=== PATIENT | female | born 1940 | race Caucasian/White ===

== ENCOUNTER 2018-12-23 11:41 | Emergency (ER) | payer MEDICARE, BC ==
[2018-12-23] MEDS ORDERED: cloNIDine 0.1 MG Tab PO ONE (12:59)
--- NOTE | 2018-12-23 13:05 | EDM.PDOC ---
ED HPI GENERAL MEDICAL PROBLEM - General Chief Complaint: Cardiovascular Problem Stated Complaint: HIGH BP- SENT FROM THE CLINIC Time Seen by Provider: 12/23/18 12:36 Source of Information: Reports: Patient, Provider, RN Notes Reviewed History Limitations: Reports: No Limitations - History of Present Illness INITIAL COMMENTS - FREE TEXT/NARRATIVE: 78-year-old female presents emergency department today sent over from clinic for elevated blood pressure. She has a long extensive history with poorly controlled blood pressure MRI reveals chronic lacunar infarcts. She has an extensive intolerance lists to blood pressure medications including beta blockers, hakeem inhibitors, arm class medications, calcium channel blockers. She is very resistant to trying any new medications because they make her feel lightheaded and passed out. - Related Data Allergies Allergy/AdvReac Type Severity Reaction Status Date / Time latex Allergy Mild Itching Verified 12/23/18 12:16 bacitracin Allergy Cannot Verified 12/23/18 12:16 [From Neosporin Remember ([id number])] bacitracin zinc Allergy Cannot Verified 12/23/18 12:16 [From Neosporin Remember ([id number])] losartan potassium Allergy Cannot Verified 12/23/18 12:16 [From Cozaar] Remember neomycin sulfate Allergy Cannot Verified 12/23/18 12:16 [From Neosporin Remember ([id number])] nickel [Nickel] Allergy unknown Verified 12/23/18 12:16 polymyxin B Allergy Cannot Verified 12/23/18 12:16 [From Neosporin Remember ([id number])] quinapril Allergy Unknown Verified 12/23/18 12:16 amlodipine AdvReac Fainting Verified 12/23/18 12:16 labetalol [Labetalol] AdvReac Fainting Verified 12/23/18 12:16 lisinopril AdvReac Fainting Verified 12/23/18 12:16 meperidine HCl [From Demerol] AdvReac Dizziness Verified 12/23/18 12:16 NSAIDS (Non-Steroidal AdvReac Cannot Verified 12/23/18 12:16 Anti-Inflamma Remember Home Meds: Home Meds Cholecalciferol (Vitamin D3) [Vitamin D] 2 cap PO DAILY 03/31/13 [History] Clopidogrel [Plavix] 75 mg PO DAILY 03/31/13 [History] Cyanocobalamin (Vitamin B-12) [Vitamin B-12] 250 mcg PO DAILY 03/31/13 [History] Fenofibrate,Micronized [Lofibra] 1 cap PO DAILY 03/31/13 [History] Folic Acid 400 mcg PO DAILY 03/31/13 [History] Meclizine [Antivert] 25 mg PO TID PRN 03/31/13 [History] Propranolol HCl 1 tab PO BID 03/31/13 [History] Ranitidine [Zantac] 150 mg PO DAILY 03/31/13 [History] Spironolactone [Aldactone] 25 mg PO BID 03/31/13 [History] Triamcinolone Acetonide [Triamcinolone Acetonide 0.1% Crm] 1 applic TOP QID 12/04 [History] Clobetasol [Clobetasol Propionate 0.05%] 45 gm TOP BID 10/28/13 [History] Triamcinolone Acetonide [Kenalog 0.1% Crm] 15 gm .XX QID 10/28/13 [History] cloNIDine [Catapres] 0.1 mg PO DAILY #30 tab 12/23/18 [Rx] Past Medical History HEENT History: Reports: Cataract, Hard of Hearing, Impaired Vision Cardiovascular History: Reports: High Cholesterol, Hypertension Genitourinary History: Reports: Urinary Incontinence [employer] History: Reports: Neurological History: Reports: CVA, Migraines - Past Surgical History Head Surgeries/Procedures: Reports: None HEENT Surgical History: Reports: None Cardiovascular Surgical History: Reports: AAA Repair, Other (See Below) GI Surgical History: Reports: Appendectomy, Cholecystectomy Female Surgical History: Reports: None Neurological Surgical History: Reports: None Dermatological Surgical History: Reports: None Social & Family History - Tobacco Use Smoking Status *Q: Former Smoker Used Tobacco, but Quit: Yes Month/Year Tobacco Last Used: 1989 - Caffeine Use Caffeine Use: Reports: Coffee, Soda, Tea - Recreational Drug Use Recreational Drug Use: No - Living Situation & Occupation Living situation: Reports: Occupation: Retired ED ROS GENERAL - Review of Systems Review Of Systems: See Below Constitutional: Reports: No Symptoms HEENT: Reports: No Symptoms Respiratory: Reports: No Symptoms Cardiovascular: Reports: No Symptoms GI/Abdominal: Reports: No Symptoms Neurological: Reports: Other (head feels full) ED EXAM, GENERAL - Physical Exam Exam: See Below Exam Limited By: No Limitations General Appearance: Alert, WD/WN, No Apparent Distress Respiratory/Chest: No Respiratory Distress, Lungs Clear, Normal Breath Sounds, No Accessory Muscle Use, Chest Non-Tender Cardiovascular: Regular Rate, Rhythm, No Murmur Course - Vital Signs Last Recorded V/S: Last Vital Signs Temp 96.8 F 12/23/18 12:28 Pulse 76 12/23/18 15:01 Resp 16 12/23/18 15:01 BP 188/100 H 12/23/18 15:01 Pulse Ox 97 12/23/18 15:01 - Orders/Labs/Meds Meds: Medications Discontinued Medications Generic Name Dose Route Start Last Admin Trade Name Freq PRN Reason Stop Dose Admin Clonidine HCl 0.1 mg 12/23/18 12:59 12/23/18 13:20 Catapres PO 12/23/18 13:00 0.1 mg ONETIME ONE Administration Nitroglycerin 0.4 mg 12/23/18 13:59 12/23/18 14:32 Nitrostat SL 12/23/18 14:00 0.4 mg ONETIME ONE Administration Departure - Departure Time of Disposition: 15:14 Disposition: Home, Self-Care 01 Condition: Fair Clinical Impression: Hypertension Qualifiers: Hypertension type: essential hypertension Qualified Code(s): I10 - Essential ( primary) hypertension Prescriptions: cloNIDine [Catapres] 0.1 mg PO DAILY #30 tab Referrals: Lydia Larsen PA [Primary Care Provider] - Forms: ED Department Discharge Additional Instructions: start your Catapres tomorrow one tablet daily, please follow-up with your [facility] provider in 2 days for reevaluation at which time she may want to check your blood work, call return to the emergency department worsening of symptoms - Assessment/Plan Plan: Assessment Acuity = acute Site and laterality = hypertension poorly controlled Etiology = unclear etiology Manifestations = none Location of injury = Home Lab values = none Plan we will bring her blood pressure down from 240-188 with combination Catapres 0.1 mg in sublingual nitroglycerin. Because of her extensive intolerance to blood pressure medications used Catapres 0.1 mg daily those medications have been faxed a [facility]. She'll follow up with her primary care in 2 days for reevaluation of blod pressure and blood work as needed This note was dictated using dragon voice recognition software please call with any questions on syntax or grammar.
[2018-12-23] MEDS ORDERED: Nitroglycerin 0.4 MG Tab.SL SL ONE (13:59)
[2018-12-23 15:02] VITALS: BP 188/100; PULSE 76
== END 2018-12-23 15:35 | disposition home or self-care (01) ==
LOC: JP.ED 11:41
DX: I10 Essential (primary) hypertension (principal); Z86.73 Personal history of transient ischemic attack (TIA), and cerebral infarction without residual deficits; Z87.891 Personal history of nicotine dependence; Z88.1 Allergy status to other antibiotic agents; Z91.040 Latex allergy status; Z88.8 Allergy status to other drugs, medicaments and biological substances; Z88.6 Allergy status to analgesic agent; Z91.048 Other nonmedicinal substance allergy status; Z79.02 Long term (current) use of antithrombotics/antiplatelets; Z79.899 Other long term (current) drug therapy
CPT/HCPCS: 99282; A9270-GY

== ENCOUNTER 2019-03-12 17:35 | Observation (INO) | payer MEDICARE, BC ==
--- NOTE | 2019-03-12 18:20 | EDM.PDOC ---
ED HPI GENERAL MEDICAL PROBLEM - General Chief Complaint: Skin Complaint Stated Complaint: REACTION ON BOTH EYES Time Seen by Provider: 03/12/19 18:10 Source of Information: Reports: Patient History Limitations: Reports: No Limitations - History of Present Illness INITIAL COMMENTS - FREE TEXT/NARRATIVE: pt has had markedly swollen eyes for the past 36 hours. She was using cool packs. She does not know what has caused this. She can not think of what this could be. She did not eat anything different. She was at [employer] and it was after that that it happened. Onset: Other ( 36 hours ago. ) Duration: Hour(s): Location: Reports: Face Associated Symptoms: Reports: No Other Symptoms, Other ( Pt has no swelling in the throat nd she is not sob. ) Face/Facial Pain Score (Numeric/FACES): 9 - Related Data Allergies Allergy/AdvReac Type Severity Reaction Status Date / Time latex Allergy Mild Itching Verified 03/12/19 17:57 bacitracin Allergy Cannot Verified 03/12/19 17:57 [From Neosporin Remember ([id number])] bacitracin zinc Allergy Cannot Verified 03/12/19 17:57 [From Neosporin Remember ([id number]-[id number])] losartan potassium Allergy Cannot Verified 03/12/19 17:57 [From Cozaar] Remember neomycin sulfate Allergy Cannot Verified 03/12/19 17:57 [From Neosporin Remember ([id number])] nickel [Nickel] Allergy unknown Verified 03/12/19 17:57 polymyxin B Allergy Cannot Verified 03/12/19 17:57 [From Neosporin Remember ([id number])] quinapril Allergy Unknown Verified 03/12/19 17:57 amlodipine AdvReac Fainting Verified 03/12/19 17:57 labetalol [Labetalol] AdvReac Fainting Verified 03/12/19 17:57 lisinopril AdvReac Fainting Verified 03/12/19 17:57 meperidine HCl [From Demerol] AdvReac Dizziness Verified 03/12/19 17:57 NSAIDS (Non-Steroidal AdvReac Cannot Verified 03/12/19 17:57 Anti-Inflamma Remember Home Meds: Home Meds Cholecalciferol (Vitamin D3) [Vitamin D] 1 cap PO DAILY 03/31/13 [History] Folic Acid 400 mcg PO DAILY 03/31/13 [History] Meclizine [Antivert] 25 mg PO TID PRN 03/31/13 [History] Propranolol HCl 1 tab PO BID 03/31/13 [History] cloNIDine [Catapres] 0.1 mg PO DAILY #30 tab 12/23/18 [Rx] Calcitriol [Rocaltrol] 0.25 mcg PO ASDIRECTED 03/12/19 [History] Clopidogrel Bisulfate [Clopidogrel] 1 tab PO DAILY 03/12/19 [History] Losartan [Cozaar] 50 mg PO DAILY 03/12/19 [History] Potassium Chloride 20 meq PO BID 03/12/19 [History] atorvaSTATin [Lipitor] 20 mg PO DAILY 03/12/19 [History] Past Medical History HEENT History: Reports: Cataract, Hard of Hearing, Impaired Vision Cardiovascular History: Reports: High Cholesterol, Hypertension Gastrointestinal History: Reports: None Genitourinary History: Reports: Urinary Incontinence [employer] History: Reports: Neurological History: Reports: CVA, Migraines - Past Surgical History Head Surgeries/Procedures: Reports: None HEENT Surgical History: Reports: None Female Surgical History: Reports: None Neurological Surgical History: Reports: None Dermatological Surgical History: Reports: None Social & Family History - Caffeine Use Caffeine Use: Reports: Coffee, Soda, Tea - Living Situation & Occupation Living situation: Reports: Occupation: Retired ED ROS GENERAL - Review of Systems Review Of Systems: See Below Constitutional: Reports: No Symptoms HEENT: Reports: Eye Discharge, Other (pt has marked swelling of both eye lids. ) Respiratory: Reports: No Symptoms Cardiovascular: Reports: No Symptoms Endocrine: Reports: No Symptoms GI/Abdominal: Reports: No Symptoms : Reports: No Symptoms Musculoskeletal: Reports: No Symptoms ED EXAM, SKIN/RASH Exam: See Below Text/Narrative:: p arrived with marked swelling around both eyes. These were very itch. She has no idea why she has reacted. She has a rash on her rt ankle which looks like a eczema type rash. Exam Limited By: No Limitations General Appearance: Alert, Anxious, Moderate Distress, Other (pt has a markedly elevated bp. She did not take her meds today. ) Ears: Normal TMs Nose: Normal Inspection Throat/Mouth: Normal Inspection Head: Atraumatic Neck: Normal Inspection Respiratory/Chest: No Respiratory Distress Cardiovascular: Regular Rate, Rhythm GI/Abdominal: Soft, Non-Tender (Female) Exam: Deferred Rectal (Female) Exam: Deferred Back Exam: Normal Inspection Extremities: Other (pt has a rash on the inner aspect of the rt ankle. ) Neurological: Alert, Oriented, Normal Cognition Psychiatric: Normal Affect, Anxious Skin: Other (pt has swelling around both eyes and she has a rash on the inner aspect of the rt ankle. ) Location, Skin: Face, Lower Extremity, Right Characteristics: Papular Course - Vital Signs Last Recorded V/S: Last Vital Signs Temp 36.4 C 03/12/19 18:18 Pulse 92 03/12/19 20:52 Resp 16 03/12/19 19:25 BP 191/92 H 03/12/19 22:03 Pulse Ox 98 03/12/19 20:26 - Orders/Labs/Meds Orders: Active Orders 24 hr Category Date Time Status Propranolol [Inderal] Med 03/13/19 22:36 Once 40 mg PO BID ONE Sodium Chloride 0.9% [Normal Saline] 1,000 ml Med 03/12/19 18:45 Active IV ASDIRECTED Sodium Chloride 0.9% [Normal Saline] 1,000 ml Med 03/12/19 20:15 Active IV ASDIRECTED Medication Orders Sodium Chloride (Normal Saline) 1,000 mls @ 999 mls/hr IV ASDIRECTED GINA Last Admin: 03/12/19 19:01 Dose: 999 mls/hr Sodium Chloride (Normal Saline) 1,000 mls @ 500 mls/hr IV ASDIRECTED GINA Last Admin: 03/12/19 20:15 Dose: 500 mls/hr Propranolol HCl (Inderal) 40 mg PO BID ONE Stop: 03/13/19 22:37 Labs: Laboratory Tests 03/12/19 03/12/19 Range/Units 18:58 18:58 WBC 9.8 (4.5-11.0) K/uL RBC 4.45 (3.30-5.50) M/uL Hgb 12.1 (12.0-15.0) g/dL Hct 39.7 (36.0-48.0) % MCV 89 (80-98) fL MCH 27 (27-31) pg MCHC 31 L (32-36) % Plt Count 333 (150-400) K/uL Neut % (Auto) 67 H (36-66) % Lymph % (Auto) 19 L (24-44) % [place] % (Auto) 9 H (2-6) % Eos % (Auto) 5 H (2-4) % Baso % (Auto) 1 (0-1) % Sodium 140 (140-148) mmol/L Potassium 3.2 L (3.6-5.2) mmol/L Chloride 102 (100-108) mmol/L Carbon Dioxide 27 (21-32) mmol/L Anion Gap 14.2 H (5.0-14.0) mmol/L BUN 22 H (7-18) mg/dL Creatinine 2.1 H (0.6-1.0) mg/dL Est Cr Clr Drug Dosing 19.37 mL/min Estimated GFR (MDRD) 23 L (>60) Glucose 93 (74-106) mg/dL Calcium 9.2 (8.5-10.1) mg/dL Total Bilirubin 0.5 (0.2-1.0) mg/dL AST 15 (15-37) U/L ALT 13 (12-78) U/L Alkaline Phosphatase 86 (46-116) U/L Total Protein 7.3 (6.4-8.2) g/dL Albumin 3.3 L (3.4-5.0) g/dL Globulin 4.0 H (2.3-3.5) g/dL Albumin/Globulin Ratio 0.8 L (1.2-2.2) Meds: Medications Generic Name Dose Route Start Last Admin Trade Name Freq PRN Reason Stop Dose Admin Sodium Chloride 1,000 mls @ 999 mls/hr 03/12/19 18:45 03/12/19 19:01 Normal Saline IV 999 mls/hr ASDIRECTED GINA Administration Sodium Chloride 1,000 mls @ 500 mls/hr 03/12/19 20:15 03/12/19 20:15 Normal Saline IV 500 mls/hr ASDIRECTED GINA Administration Propranolol HCl 40 mg 03/13/19 22:36 Inderal PO 03/13/19 22:37 BID ONE Discontinued Medications Generic Name Dose Route Start Last Admin Trade Name Freq PRN Reason Stop Dose Admin Clonidine HCl 0.1 mg 03/12/19 18:44 03/12/19 19:04 Catapres PO 03/12/19 18:45 0.1 mg ONETIME ONE Administration Clonidine HCl 0.1 mg 03/12/19 20:52 03/12/19 20:58 Catapres PO 03/12/19 20:53 0.1 mg ONETIME ONE Administration Diphenhydramine HCl 25 mg 03/12/19 18:41 03/12/19 19:01 Benadryl IVPUSH 03/12/19 18:42 25 mg ONETIME ONE Administration Losartan Potassium 50 mg 03/12/19 18:42 03/12/19 19:04 Cozaar PO 03/12/19 18:43 50 mg ONETIME ONE Administration Methylprednisolone Sodium Succinate 125 mg 03/12/19 18:40 03/12/19 19:01 Solu-Medrol IVPUSH 03/12/19 18:41 125 mg ONETIME ONE Administration Potassium Chloride 20 meq 03/12/19 19:45 03/12/19 20:11 Klor-Con M20 PO 03/12/19 19:46 20 meq ONETIME ONE Administration Prednisone 30 mg 03/12/19 20:08 03/12/19 20:18 Prednisone PO 03/12/19 20:09 30 mg ONETIME ONE Administration Propranolol HCl 40 mg 03/12/19 19:55 03/12/19 20:11 Inderal PO 03/12/19 19:56 40 mg BID ONE Administration Propranolol HCl 20 mg 03/13/19 09:00 Inderal PO 03/13/19 09:01 BID ONE - Re-Assessments/Exams Free Text/Narrative Re-Assessment/Exam: 03/12/19 19:57 pt arrived with bp elevation. Swelling around the eyes, She has no idea what she may have reacted to. 03/12/19 23:02 pt has improved with her swelling on the eyes. She is feeling better from that stand point. Her bp continues to be very elevated. She did not take her home meds today she has been given all of them and a extra cloidine and a total of 60 inderal. Departure - Departure Time of Disposition: 23:04 Disposition: Admitted As Inpatient 68 Condition: Fair Clinical Impression: Allergic reaction Hypertension Qualifiers: Hypertension type: essential hypertension Qualified Code(s): I10 - Essential ( primary) hypertension - Discharge Information Referrals: Karen Parikh MD [Primary Care Provider] - Forms: ED Department Discharge Care Plan Goals: admit to Dr Vargas Sepsis Event Note - Focused Exam Vital Signs: Vital Signs Temp Pulse Resp BP BP Pulse Ox 03/12/19 22:03 191/92 H 03/12/19 21:39 201/105 H 03/12/19 20:58 228/120 H 03/12/19 20:52 92 225/110 H 03/12/19 20:26 92 243/132 H 98 03/12/19 20:00 91 233/114 H 03/12/19 19:45 92 226/110 H 03/12/19 19:25 93 16 232/124 H 98 03/12/19 19:04 236/139 H 03/12/19 18:18 36.4 C 99 16 248/129 H 98 Date Exam was Performed: 03/12/19 Time Exam was Performed: 23:02 - My Orders Last 24 Hours: My Active Orders 03/12/19 18:45 Sodium Chloride 0.9% [Normal Saline] 1,000 ml IV ASDIRECTED 03/12/19 20:15 Sodium Chloride 0.9% [Normal Saline] 1,000 ml IV ASDIRECTED 03/13/19 22:36 Propranolol [Inderal] 40 mg PO BID ONE - Assessment/Plan Last 24 Hours: My Active Orders 03/12/19 18:45 Sodium Chloride 0.9% [Normal Saline] 1,000 ml IV ASDIRECTED 03/12/19 20:15 Sodium Chloride 0.9% [Normal Saline] 1,000 ml IV ASDIRECTED 03/13/19 22:36 Propranolol [Inderal] 40 mg PO BID ONE
[2019-03-12] MEDS ORDERED: methylPREDNISolone Sodium Succinate 125 MG/2 ML SDV IVPUSH ONE (18:40)
[2019-03-12] MEDS ORDERED: diphenhydrAMINE 50 MG/ML SDV IVPUSH ONE (18:41)
[2019-03-12] MEDS ORDERED: Losartan 50 MG Tab PO ONE (18:42)
[2019-03-12] MEDS ORDERED: cloNIDine 0.1 MG Tab PO ONE ×2 (18:44→20:52)
[2019-03-12] MEDS ORDERED: Sodium Chloride 0.9% 1,000 ML IV SCH ×2 (18:45→20:15)
[2019-03-12] MEDS ORDERED: Potassium Chloride 20 MEQ Tab.ER PO ONE (19:45)
[2019-03-12] MEDS ORDERED: Propranolol 40 MG Tab PO ONE ×3 (19:55→23:15)
[2019-03-12] MEDS ORDERED: predniSONE 20 MG Tab PO ONE (20:08)
--- NOTE | 2019-03-13 01:13 | PCM.HP.2 ---
H&P History of Present Illness - General Date of Service: 03/13/19 Admit Problem/Dx: Admission Diagnosis/Problem Admission Diagnosis/Problem Allergic reaction Source of Information: Patient, Family, Provider History Limitations: Reports: No Limitations - History of Present Illness Initial Comments - Free Text/Narative: CC: my eyes swelled up HPI: Claire presents to the emergency room today with significant swelling of both of her eyes as well as a mild rash on her right face. She reports that she woke up on morning, 3 days ago with some mild swelling that has progressed over the last 3 days. This morning her eyes were swollen so bad she could barely open them. Her eyes are itchy but there is no pain. She thinks her vision is fine when she is able to get her eyelids open. She does not feel short of breath. She has not had fevers or chills. Appetite has been good. No nausea or vomiting. She is not on any new medications. She did travel the day before onset of symptoms but does not think she ate anything unusual. She did not comment any chemicals that she is aware of. She does not have a history of similar reactions. She had been feeling well prior to onset of symptoms a few days ago. In the emergency room she was noted to have significant swelling and erythema around both eyes. She was given steroids and Benadryl for this. She was also noted to be significantly hypertensive. She received her usual home medications plus an extra dose of propranolol and clonidine. Blood pressure has been trending down since that time. She will be admitted for observation for blood pressure monitoring and allergic reaction monitoring. Face/Facial Pain Score (Numeric/FACES): 9 - Related Data Allergies/Adverse Reactions: Allergies Allergy/AdvReac Type Severity Reaction Status Date / Time latex Allergy Mild Itching Verified 03/12/19 17:57 bacitracin Allergy Cannot Verified 03/12/19 17:57 [From Neosporin Remember ([id number])] bacitracin zinc Allergy Cannot Verified 03/12/19 17:57 [From Neosporin Remember ([id number])] losartan potassium Allergy Cannot Verified 03/12/19 17:57 [From Cozaar] Remember neomycin sulfate Allergy Cannot Verified 03/12/19 17:57 [From Neosporin Remember ([id number])] nickel [Nickel] Allergy unknown Verified 03/12/19 17:57 polymyxin B Allergy Cannot Verified 03/12/19 17:57 [From Neosporin Remember ([id number])] quinapril Allergy Unknown Verified 03/12/19 17:57 amlodipine AdvReac Fainting Verified 03/12/19 17:57 labetalol [Labetalol] AdvReac Fainting Verified 03/12/19 17:57 lisinopril AdvReac Fainting Verified 03/12/19 17:57 meperidine HCl [From Demerol] AdvReac Dizziness Verified 03/12/19 17:57 NSAIDS (Non-Steroidal AdvReac Cannot Verified 03/12/19 17:57 Anti-Inflamma Remember Home Medications: Home Meds Cholecalciferol (Vitamin D3) [Vitamin D] 1 cap PO DAILY 03/31/13 [History] Folic Acid 400 mcg PO DAILY 03/31/13 [History] Meclizine [Antivert] 25 mg PO TID PRN 03/31/13 [History] Propranolol HCl 40 mg PO BID 03/31/13 [History] cloNIDine [Catapres] 0.1 mg PO DAILY #30 tab 12/23/18 [Rx] Calcitriol [Rocaltrol] 0.25 mcg PO ASDIRECTED 03/12/19 [History] Clopidogrel Bisulfate [Clopidogrel] 75 mg PO DAILY 03/12/19 [History] Losartan [Cozaar] 50 mg PO DAILY 03/12/19 [History] Potassium Chloride 20 meq PO DAILY 03/12/19 [History] atorvaSTATin [Lipitor] 20 mg PO DAILY 03/12/19 [History] Past Medical History HEENT History: Reports: Cataract, Hard of Hearing, Impaired Vision Cardiovascular History: Reports: High Cholesterol, Hypertension Gastrointestinal History: Reports: None Genitourinary History: Reports: Urinary Incontinence [employer] History: Reports: Neurological History: Reports: CVA, Migraines Hematologic History: Reports: Blood Transfusion(s) - Infectious Disease History Infectious Disease History: Reports: Chicken Pox, Mumps - Past Surgical History Head Surgeries/Procedures: Reports: None HEENT Surgical History: Reports: None Female Surgical History: Reports: None Neurological Surgical History: Reports: None Dermatological Surgical History: Reports: None Social & Family History - Family History Cardiac: Denies: CAD - Tobacco Use Smoking Status *Q: Former Smoker Years of Tobacco use: 15 Packs/Tins Daily: 0.5 Used Tobacco, but Quit: Yes Month/Year Tobacco Last Used: 2008 Second Hand Smoke Exposure: No - Caffeine Use Caffeine Use: Reports: Coffee, Soda, Tea - Recreational Drug Use Recreational Drug Use: No - Living Situation & Occupation Living situation: Reports: Occupation: Retired H&P Review of Systems - Review of Systems: Review Of Systems: See Below Free Text/Narrative: A complete 12 point review of systems was obtained. Pertinent positives and negatives are noted in the history of present illness. All other systems were reviewed and were negative except as noted. Exam - Exam Exam: See Below - Vital Signs Vital Signs: Last Vital Signs Temp 36.4 C 03/12/19 18:18 Pulse 107 H 03/13/19 00:47 Resp 16 03/12/19 19:25 BP 131/75 03/13/19 00:47 Pulse Ox 98 03/12/19 20:26 Weight: 63.503 kg - Exam Quality Assessment: No: Supplemental Oxygen General: Alert, Oriented, Cooperative. No: Mild Distress HEENT: Conjunctiva Clear, Other (bilateral orbital edema with erythema ). No: Mucosa Moist & [place] (dry), Scleral Icterus Neck: Supple, Trachea Midline Lungs: Clear to Auscultation, Normal Respiratory Effort Cardiovascular: Regular Rate, Regular Rhythm GI/Abdominal Exam: Normal Bowel Sounds, Soft, Non-Tender, No Distention Extremities: Pedal Edema (mild bilateral ankle edema ). No: Increased Warmth Skin: Warm, Dry, Rash (very faint macular rash right lateral jaw/face) Neuro Extensive - Mental Status: Alert, Nl Response to Commands Neuro Extensive - Motor, Sensory, Reflexes: No: Dysarthria, Abnormal Motor, Tremor Psychiatric: Alert, Normal Affect - Patient Data Lab Results Last 24 hrs: Laboratory Results - last 24 hr 03/12/19 03/12/19 03/12/19 Range/Units 18:58 18:58 23:41 WBC 9.8 (4.5-11.0) K/uL RBC 4.45 (3.30-5.50) M/uL Hgb 12.1 (12.0-15.0) g/dL Hct 39.7 (36.0-48.0) % MCV 89 (80-98) fL MCH 27 (27-31) pg MCHC 31 L (32-36) % Plt Count 333 (150-400) K/uL Neut % (Auto) 67 H (36-66) % Lymph % (Auto) 19 L (24-44) % [place] % (Auto) 9 H (2-6) % Eos % (Auto) 5 H (2-4) % Baso % (Auto) 1 (0-1) % Sodium 140 (140-148) mmol/L Potassium 3.2 L (3.6-5.2) mmol/L Chloride 102 (100-108) mmol/L Carbon Dioxide 27 (21-32) mmol/L Anion Gap 14.2 H (5.0-14.0) mmol/L BUN 22 H (7-18) mg/dL Creatinine 2.1 H (0.6-1.0) mg/dL Est Cr Clr Drug Dosing 19.37 mL/min Estimated GFR (MDRD) 23 L (>60) Glucose 93 (74-106) mg/dL Calcium 9.2 (8.5-10.1) mg/dL Total Bilirubin 0.5 (0.2-1.0) mg/dL AST 15 (15-37) U/L ALT 13 (12-78) U/L Alkaline Phosphatase 86 (46-116) U/L Troponin I < 0.017 (0.000-0.056) ng/mL Total Protein 7.3 (6.4-8.2) g/dL Albumin 3.3 L (3.4-5.0) g/dL Globulin 4.0 H (2.3-3.5) g/dL Albumin/Globulin Ratio 0.8 L (1.2-2.2) Urine Color (YELLOW) Urine Appearance (CLEAR) Urine pH (5.0-8.0) Ur Specific [place] (1.008-1.030) Urine Protein (NEGATIVE) mg/dL Urine Glucose (UA) (NEGATIVE) mg/dL Urine Ketones (NEGATIVE) mg/dL Urine Occult Blood (NEGATIVE) Urine Nitrite (NEGATIVE) Urine Bilirubin (NEGATIVE) Urine Urobilinogen (0.2-1.0) EU/dL Ur Leukocyte Esterase (NEGATIVE) Urine RBC (0-5) Urine WBC (0-5) Ur Epithelial Cells Amorphous Sediment Urine Bacteria Urine Mucus 03/12/19 Range/Units 23:50 WBC (4.5-11.0) K/uL RBC (3.30-5.50) M/uL Hgb (12.0-15.0) g/dL Hct (36.0-48.0) % MCV (80-98) fL MCH (27-31) pg MCHC (32-36) % Plt Count (150-400) K/uL Neut % (Auto) (36-66) % Lymph % (Auto) (24-44) % [place] % (Auto) (2-6) % Eos % (Auto) (2-4) % Baso % (Auto) (0-1) % Sodium (140-148) mmol/L Potassium (3.6-5.2) mmol/L Chloride (100-108) mmol/L Carbon Dioxide (21-32) mmol/L Anion Gap (5.0-14.0) mmol/L BUN (7-18) mg/dL Creatinine (0.6-1.0) mg/dL Est Cr Clr Drug Dosing mL/min Estimated GFR (MDRD) (>60) Glucose (74-106) mg/dL Calcium (8.5-10.1) mg/dL Total Bilirubin (0.2-1.0) mg/dL AST (15-37) U/L ALT (12-78) U/L Alkaline Phosphatase (46-116) U/L Troponin I (0.000-0.056) ng/mL Total Protein (6.4-8.2) g/dL Albumin (3.4-5.0) g/dL Globulin (2.3-3.5) g/dL Albumin/Globulin Ratio (1.2-2.2) Urine Color Yellow (YELLOW) Urine Appearance Clear (CLEAR) Urine pH 7.0 (5.0-8.0) Ur Specific [place] 1.020 (1.008-1.030) Urine Protein 100 H (NEGATIVE) mg/dL Urine Glucose (UA) Normal (NEGATIVE) mg/dL Urine Ketones Negative (NEGATIVE) mg/dL Urine Occult Blood Trace (NEGATIVE) Urine Nitrite Negative (NEGATIVE) Urine Bilirubin Negative (NEGATIVE) Urine Urobilinogen 0.2 (0.2-1.0) EU/dL Ur Leukocyte Esterase Negative (NEGATIVE) Urine RBC 0-5 (0-5) Urine WBC 0-5 (0-5) Ur Epithelial Cells Rare Amorphous Sediment Not seen Urine Bacteria Few Urine Mucus Not seen Result Diagrams: 03/12/19 18:58 03/12/19 18:58 Sepsis Event Note - Evaluation Sepsis Screening Result: No Definite Risk - Focused Exam Vital Signs: Vital Signs Temp Pulse Resp BP BP Pulse Ox 03/13/19 00:47 107 H 131/75 03/13/19 00:00 181/80 H 03/12/19 23:15 190/102 H 03/12/19 22:03 191/92 H 03/12/19 21:39 201/105 H 03/12/19 20:58 228/120 H 03/12/19 20:52 92 225/110 H 03/12/19 20:26 92 243/132 H 98 03/12/19 20:00 91 233/114 H 03/12/19 19:45 92 226/110 H 03/12/19 19:25 93 16 232/124 H 98 03/12/19 19:04 236/139 H 03/12/19 18:18 36.4 C 99 16 248/129 H 98 Date Exam was Performed: 03/13/19 Time Exam was Performed: 01:28 *Q Meaningful Use (ADM) - VTE Risk Assess *Q Each Risk Factor Represents 1 Point: Swollen Legs, Current Total Score 1 Point Risk Factors: 1 Each Risk Factor Represents 2 Points: Malignancy (present or previous) Total Score 2 Point Risk Factors: 2 Each Risk Factor Represents 3 Points: Age 75 Years or Greater Total Score 3 Point Risk Factors: 3 Each Risk Factor Represents 5 Points: None Total Score 5 Point Risk Factors: 0 Venous Thromboembolism Risk Factor Score *Q: 6 - Problem List (1) Allergic reaction SNOMED Code(s): 044970880 ICD Code: T78.40XA - ALLERGY, UNSPECIFIED, INITIAL ENCOUNTER Status: Acute Current Visit: Yes Qualifiers: Encounter type: initial encounter Qualified Code(s): T78.40XA - Allergy, unspecified, initial encounter (2) Accelerated hypertension SNOMED Code(s): 34392683 ICD Code: I10 - ESSENTIAL (PRIMARY) HYPERTENSION Status: Acute Current Visit: Yes (3) Stage 3b chronic kidney disease SNOMED Code(s): 788581347 ICD Code: N18.3 - CHRONIC KIDNEY DISEASE, STAGE 3 (MODERATE) Status: Chronic Current Visit: Yes (4) Hypokalemia SNOMED Code(s): 67813167 ICD Code: E87.6 - HYPOKALEMIA Status: Acute Current Visit: Yes Problem List Initiated/Reviewed/Updated: Yes Orders Last 24hrs: Active Orders 24 hr Category Date Time Status Patient Status Manage Transfer [TRANSFER] Routine ADT 03/13/19 01:04 Ordered Sodium Chloride 0.9% [Normal Saline] 1,000 ml Med 03/12/19 18:45 Active IV ASDIRECTED Sodium Chloride 0.9% [Normal Saline] 1,000 ml Med 03/12/19 20:15 Active IV ASDIRECTED Resuscitation Status Routine Resus Stat 03/13/19 01:06 Ordered Medication Orders Sodium Chloride (Normal Saline) 1,000 mls @ 999 mls/hr IV ASDIRECTED [facility] Last Admin: 03/12/19 19:01 Dose: 999 mls/hr Sodium Chloride (Normal Saline) 1,000 mls @ 500 mls/hr IV ASDIRECTED [facility] Last Admin: 03/12/19 20:15 Dose: 500 mls/hr Assessment/Plan Comment:: ASSESSMENT AND PLAN - Allergic reaction-no obvious trigger but based on the location nature seems like either a chemical irritant or potentially something inhaled or aerosolized. Symptoms had progressed over several days but seem to be abating after the steroids and antihistamine. Given the severity of the reaction I think additional doses of antihistamines and steroids are warranted. This appears to be very atypical for drug reaction. -Prednisone 40 mg daily -Diphenhydramine every 6 hours -Reassess in the morning Accelerated hypertension-blood pressure very elevated in the emergency room but coming down after receiving her usual home medications. No symptoms such as headache, chest pain or shortness of breath. Kidney function stable. Troponin normal. No proteinuria. -Continue ARB and beta-ec -Continue clonidine, consider changing to twice daily Stage IIIb chronic kidney disease-creatinine stable and at baseline. Hypokalemia-mild and she did receive replacement in the emergency room. Maintenance issues - - DVT prophylaxis - SCDs - GI prophylaxis -not indicated - Nutrition -regular - Mason catheter -not indicated CODE STATUS -full code Admission justification - patient will be referred observation status for overnight monitoring Disposition - I would anticipate discharge home after the hospital stay Primary care physician - Dr. Lisa Vargas M.D. - Mortality Measure Prognosis:: Good
[2019-03-13] MEDS ORDERED: LORazepam 2 MG/ML SDV IVPUSH PRN (01:34)
[2019-03-13] MEDS ORDERED: Ondansetron 4 MG Tab.DIS PO PRN (01:34)
[2019-03-13] MEDS ORDERED: Acetaminophen 325 MG Tab PO PRN (01:34)
[2019-03-13] MEDS ORDERED: Ondansetron 4 MG/2 ML SDV IV PRN (01:34)
[2019-03-13] MEDS ORDERED: Magnesium Hydroxide 400 MG/5 ML Susp 30 ML Cup PO PRN (01:34)
[2019-03-13] MEDS: diphenhydrAMINE 25 MG Cap PO SCH ×2 (02:16→07:23)
[2019-03-13] MEDS ORDERED: predniSONE 20 MG Tab PO SCH (08:00)
[2019-03-13] MEDS ORDERED: cloNIDine 0.1 MG Tab PO SCH (09:00)
[2019-03-13] MEDS ORDERED: Potassium Chloride 10 MEQ **PTOM PO SCH (09:00)
[2019-03-13] MEDS ORDERED: ATORVASTATIN 20 MG PO SCH (09:00)
[2019-03-13] MEDS ORDERED: Propranolol 40 MG Tab PO ONE ×2 (09:00→22:36)
[2019-03-13] MEDS ORDERED: PROPRANOLOL 40 MG PO SCH (09:00)
[2019-03-13] MEDS ORDERED: Clopidogrel 75 MG **PTOM PO SCH (09:00)
[2019-03-13] MEDS ORDERED: POTASSIUM CHLORIDE 20 MEQ PO SCH (09:00)
[2019-03-13] MEDS ORDERED: Folic Acid 1 MG Tab PO SCH (09:00)
[2019-03-13] MEDS ORDERED: FOLIC ACID 400 MCG PO SCH (09:00)
[2019-03-13] MEDS ORDERED: Losartan 50 MG **PTOM PO SCH (09:00)
--- NOTE | 2019-03-13 11:50 | PCM.DCSUM1 ---
Discharge Summary - Hospital Course Brief History: 79-year-old female with history of essential hypertension and stage III chronic kidney disease who presented with bilateral periorbital edema and weakness. She was admitted for management of accelerated hypertension and a presumed allergic reaction. Diagnosis: Stroke: No - Discharge Data Discharge Date: 03/13/19 Discharge Disposition: Home, Self-Care 01 Condition: Good - Referral to Home Health Primary Care Physician: Karen Parikh MD - Discharge Diagnosis/Problem(s) (1) Allergic reaction SNOMED Code(s): 166387216 ICD Code: T78.40XA - ALLERGY, UNSPECIFIED, INITIAL ENCOUNTER Status: Acute Qualifiers: Encounter type: initial encounter Qualified Code(s): T78.40XA - Allergy, unspecified, initial encounter (2) Accelerated hypertension SNOMED Code(s): 52641433 ICD Code: I10 - ESSENTIAL (PRIMARY) HYPERTENSION Status: Acute (3) Stage 3b chronic kidney disease SNOMED Code(s): 580192153 ICD Code: N18.3 - CHRONIC KIDNEY DISEASE, STAGE 3 (MODERATE) Status: Chronic (4) Hypokalemia SNOMED Code(s): 45830800 ICD Code: E87.6 - HYPOKALEMIA Status: Acute - Patient Summary/Data Hospital Course: Claire presented to the emergency room with progressive eye swelling over the course of several days. There was concern for an allergic reaction with an unknown irritant. She received steroids and Benadryl in the emergency room as well as some IV fluids. Also noted was significant hypertension with a systolic blood pressure greater than 250 at one point. She received double doses of her usual medications because she had not taken them that day. Overnight following admission her allergic symptoms improved with significant reduction but not resolution in her eye swelling. Blood pressure did slowly trend down with systolic pressures in the 140s by the time of discharge. She did have some mild confusion overnight, likely related to steroids and Benadryl but is back to her usual self by the morning of discharge. She is feeling well. Tolerated a regular diet. She has been up and walking around with no lightheadedness. Still has some swelling and periorbital erythema but otherwise doing much better. Plan is to continue prednisone for 2 more days. She will use Benadryl as needed. - Patient Instructions Diet: Regular Diet as Tolerated Activity: As Tolerated Showering/Bathing: May Shower Notify Provider of: Fever, Increased Pain, Nausea and/or Vomiting Other/Special Instructions: 1. You were in the hospital for management of an allergic reaction to an unknown substance or allergen. Your condition has been improving with steroid therapy as well as diphenhydramine (Benadryl). I do recommend 2 additional days of steroid therapy. Please take prednisone 40 mg once daily in the morning on both Thursday and Thursday morning. You may use Benadryl 25 mg every 6 hours as needed if you have itchy or watery eyes or the swelling starts to increase. 2. Continue your other home medications as previously prescribed. 3. Follow up if symptoms do not continue to get better or if they get worse. - Discharge Plan *PRESCRIPTION DRUG MONITORING PROGRAM REVIEWED*: Not Applicable *COPY OF PRESCRIPTION DRUG MONITORING REPORT IN PATIENT OTIS: Not Applicable Prescriptions/Med Rec: predniSONE [Prednisone] 40 mg PO DAILY #4 tablet Home Medications: Home Meds Cholecalciferol (Vitamin D3) [Vitamin D3] 1 cap PO DAILY 03/31/13 [History] Folic Acid 400 mcg PO DAILY 03/31/13 [History] Meclizine [Antivert] 25 mg PO TID PRN 03/31/13 [History] Propranolol HCl 40 mg PO BID 03/31/13 [History] cloNIDine [Catapres] 0.1 mg PO DAILY #30 tab 12/23/18 [Rx] Calcitriol [Rocaltrol] 0.25 mcg PO ASDIRECTED 03/12/19 [History] Clopidogrel Bisulfate [Clopidogrel] 75 mg PO DAILY 03/12/19 [History] Losartan [Cozaar] 50 mg PO DAILY 03/12/19 [History] Potassium Chloride 20 meq PO DAILY 03/12/19 [History] atorvaSTATin [Lipitor] 20 mg PO DAILY 03/12/19 [History] predniSONE [Prednisone] 40 mg PO DAILY #4 tablet 03/13/19 [Rx] Oxygen Therapy Mode: Room Air Patient Handouts: Allergies, Adult, [id number], Prednisone tablets Referrals: Karen Parikh MD [Primary Care Provider] - (Follow-up as needed if symptoms do not continue to get better or if they get worse) - Discharge Summary/Plan Comment DC Time >30 min.: No - Patient Data Vitals - Most Recent: Last Vital Signs Temp 35.5 C 03/13/19 07:25 Pulse 65 03/13/19 07:25 Resp 18 03/13/19 07:25 BP 146/84 H 03/13/19 09:40 Pulse Ox 99 03/13/19 07:25 Weight - Most Recent: 62.777 kg I&O - Last 24 hours: Intake & Output 03/12/19 03/13/19 03/13/19 22:59 06:59 14:59 Intake Total 240 240 Output Total 200 Balance 240 40 Lab Results - Last 24 hrs: Laboratory Results - last 24 hr 03/12/19 03/12/19 03/12/19 Range/Units 18:58 18:58 23:41 WBC 9.8 (4.5-11.0) K/uL RBC 4.45 (3.30-5.50) M/uL Hgb 12.1 (12.0-15.0) g/dL Hct 39.7 (36.0-48.0) % MCV 89 (80-98) fL MCH 27 (27-31) pg MCHC 31 L (32-36) % Plt Count 333 (150-400) K/uL Neut % (Auto) 67 H (36-66) % Lymph % (Auto) 19 L (24-44) % [place] % (Auto) 9 H (2-6) % Eos % (Auto) 5 H (2-4) % Baso % (Auto) 1 (0-1) % Sodium 140 (140-148) mmol/L Potassium 3.2 L (3.6-5.2) mmol/L Chloride 102 (100-108) mmol/L Carbon Dioxide 27 (21-32) mmol/L Anion Gap 14.2 H (5.0-14.0) mmol/L BUN 22 H (7-18) mg/dL Creatinine 2.1 H (0.6-1.0) mg/dL Est Cr Clr Drug Dosing 19.37 mL/min Estimated GFR (MDRD) 23 L (>60) Glucose 93 (74-106) mg/dL Calcium 9.2 (8.5-10.1) mg/dL Total Bilirubin 0.5 (0.2-1.0) mg/dL AST 15 (15-37) U/L ALT 13 (12-78) U/L Alkaline Phosphatase 86 (46-116) U/L Troponin I < 0.017 (0.000-0.056) ng/mL Total Protein 7.3 (6.4-8.2) g/dL Albumin 3.3 L (3.4-5.0) g/dL Globulin 4.0 H (2.3-3.5) g/dL Albumin/Globulin Ratio 0.8 L (1.2-2.2) Urine Color (YELLOW) Urine Appearance (CLEAR) Urine pH (5.0-8.0) Ur Specific [place] (1.008-1.030) Urine Protein (NEGATIVE) mg/dL Urine Glucose (UA) (NEGATIVE) mg/dL Urine Ketones (NEGATIVE) mg/dL Urine Occult Blood (NEGATIVE) Urine Nitrite (NEGATIVE) Urine Bilirubin (NEGATIVE) Urine Urobilinogen (0.2-1.0) EU/dL Ur Leukocyte Esterase (NEGATIVE) Urine RBC (0-5) Urine WBC (0-5) Ur Epithelial Cells Amorphous Sediment Urine Bacteria Urine Mucus 03/12/19 Range/Units 23:50 WBC (4.5-11.0) K/uL RBC (3.30-5.50) M/uL Hgb (12.0-15.0) g/dL Hct (36.0-48.0) % MCV (80-98) fL MCH (27-31) pg MCHC (32-36) % Plt Count (150-400) K/uL Neut % (Auto) (36-66) % Lymph % (Auto) (24-44) % [place] % (Auto) (2-6) % Eos % (Auto) (2-4) % Baso % (Auto) (0-1) % Sodium (140-148) mmol/L Potassium (3.6-5.2) mmol/L Chloride (100-108) mmol/L Carbon Dioxide (21-32) mmol/L Anion Gap (5.0-14.0) mmol/L BUN (7-18) mg/dL Creatinine (0.6-1.0) mg/dL Est Cr Clr Drug Dosing mL/min Estimated GFR (MDRD) (>60) Glucose (74-106) mg/dL Calcium (8.5-10.1) mg/dL Total Bilirubin (0.2-1.0) mg/dL AST (15-37) U/L ALT (12-78) U/L Alkaline Phosphatase (46-116) U/L Troponin I (0.000-0.056) ng/mL Total Protein (6.4-8.2) g/dL Albumin (3.4-5.0) g/dL Globulin (2.3-3.5) g/dL Albumin/Globulin Ratio (1.2-2.2) Urine Color Yellow (YELLOW) Urine Appearance Clear (CLEAR) Urine pH 7.0 (5.0-8.0) Ur Specific [place] 1.020 (1.008-1.030) Urine Protein 100 H (NEGATIVE) mg/dL Urine Glucose (UA) Normal (NEGATIVE) mg/dL Urine Ketones Negative (NEGATIVE) mg/dL Urine Occult Blood Trace (NEGATIVE) Urine Nitrite Negative (NEGATIVE) Urine Bilirubin Negative (NEGATIVE) Urine Urobilinogen 0.2 (0.2-1.0) EU/dL Ur Leukocyte Esterase Negative (NEGATIVE) Urine RBC 0-5 (0-5) Urine WBC 0-5 (0-5) Ur Epithelial Cells Rare Amorphous Sediment Not seen Urine Bacteria Few Urine Mucus Not seen Med Orders - Current: Current Medications Acetaminophen (Tylenol) 650 mg PO Q4H PRN PRN Reason: Pain (Mild 1-3)/fever Atorvastatin Calcium (Lipitor) 20 mg PO DAILY [facility] Last Admin: 03/13/19 09:38 Dose: 20 mg Clonidine HCl (Catapres) 0.1 mg PO DAILY [facility] Last Admin: 03/13/19 09:40 Dose: 0.1 mg Clopidogrel Bisulfate (Plavix) 75 mg PO DAILY [facility] Last Admin: 03/13/19 09:38 Dose: 75 mg Diphenhydramine HCl (Benadryl) 25 mg PO Q6H [facility] Folic Acid (Folic Acid) 0.5 mg PO DAILY [facility] Last Admin: 03/13/19 09:40 Dose: 0.5 mg Lorazepam (Ativan) 0.5 mg IVPUSH Q4H PRN PRN Reason: Nausea/Vomiting Losartan Potassium (Cozaar) 50 mg PO DAILY [facility] Last Admin: 03/13/19 09:37 Dose: 50 mg Magnesium Hydroxide (Milk Of Magnesia) 30 ml PO Q12H PRN PRN Reason: Constipation Ondansetron HCl (Zofran Odt) 4 mg PO Q6H PRN PRN Reason: Nausea able to take PO Ondansetron HCl (Zofran) 4 mg IV Q6H PRN PRN Reason: Nausea/Vomiting Potassium Chloride (Potassium Chloride) 20 meq PO DAILY [facility] Last Admin: 03/13/19 09:38 Dose: 20 meq Prednisone (Prednisone) 40 mg PO WITHBREAKFAST [facility] Last Admin: 03/13/19 08:58 Dose: 40 mg Propranolol HCl (Inderal) 40 mg PO BID [facility] Last Admin: 03/13/19 09:38 Dose: 40 mg Senna/Docusate Sodium (Senna Plus) 1 tab PO BID PRN PRN Reason: Constipation Discontinued Medications Clonidine HCl (Catapres) 0.1 mg PO ONETIME ONE Stop: 03/12/19 18:45 Last Admin: 03/12/19 19:04 Dose: 0.1 mg Clonidine HCl (Catapres) 0.1 mg PO ONETIME ONE Stop: 03/12/19 20:53 Last Admin: 03/12/19 20:58 Dose: 0.1 mg Diphenhydramine HCl (Benadryl) 25 mg IVPUSH ONETIME ONE Stop: 03/12/19 18:42 Last Admin: 03/12/19 19:01 Dose: 25 mg Diphenhydramine HCl (Benadryl) 25 mg PO Q6H [facility] Last Admin: 03/13/19 07:23 Dose: 25 mg Sodium Chloride (Normal Saline) 1,000 mls @ 999 mls/hr IV ASDIRECTED [facility] Last Admin: 03/12/19 19:01 Dose: 999 mls/hr Sodium Chloride (Normal Saline) 1,000 mls @ 500 mls/hr IV ASDIRECTED [facility] Last Admin: 03/12/19 20:15 Dose: 500 mls/hr Losartan Potassium (Cozaar) 50 mg PO ONETIME ONE Stop: 03/12/19 18:43 Last Admin: 03/12/19 19:04 Dose: 50 mg Methylprednisolone Sodium Succinate (Solu-Medrol) 125 mg IVPUSH ONETIME ONE Stop: 03/12/19 18:41 Last Admin: 03/12/19 19:01 Dose: 125 mg Potassium Chloride (Klor-Con M20) 20 meq PO ONETIME ONE Stop: 03/12/19 19:46 Last Admin: 03/12/19 20:11 Dose: 20 meq Prednisone (Prednisone) 30 mg PO ONETIME ONE Stop: 03/12/19 20:09 Last Admin: 03/12/19 20:18 Dose: 30 mg Propranolol HCl (Inderal) 40 mg PO BID ONE Stop: 03/12/19 19:56 Last Admin: 03/12/19 20:11 Dose: 40 mg Propranolol HCl (Inderal) 20 mg PO BID ONE Stop: 03/13/19 09:01 Propranolol HCl (Inderal) 40 mg PO BID ONE Stop: 03/13/19 22:37 Propranolol HCl (Inderal) 40 mg PO BID ONE Stop: 03/12/19 23:16 Propranolol HCl (Inderal) 20 mg PO BID ONE Stop: 03/12/19 23:16 Last Admin: 03/12/19 23:13 Dose: 20 mg - Exam Quality Assessment: Denies: Supplemental Oxygen General: Reports: Alert, Oriented, Cooperative, No Acute Distress HEENT: Reports: Other (bilateral periorbital edema ) Lungs: Reports: Normal Respiratory Effort GI/Abdominal Exam: Soft, No Distention Extremities: No Pedal Edema Psy/Mental Status: Reports: Alert, Normal Affect
[2019-03-13 12:27] VITALS: BP 132/84; PULSE 60
[2019-03-13] MEDS ORDERED: diphenhydrAMINE 25 MG Cap PO SCH (14:00)
== END 2019-03-13 12:55 | disposition home or self-care (01) ==
LOC: JP.ED 17:35 → JP.MS 03-13 01:04
PROVIDERS: ADMIT Internal Medicine; ATTEND Internal Medicine
DX: T78.40XA Allergy, unspecified, initial encounter (principal); H05.223 Edema of bilateral orbit; I12.9 Hypertensive chronic kidney disease with stage 1 through stage 4 chronic kidney disease, or unspecified chronic kidney disease; N18.3 Chronic kidney disease, stage 3 (moderate); E87.6 Hypokalemia; E78.00 Pure hypercholesterolemia, unspecified; G43.909 Migraine, unspecified, not intractable, without status migrainosus; Z79.899 Other long term (current) drug therapy; Z79.02 Long term (current) use of antithrombotics/antiplatelets; Z91.040 Latex allergy status; Z88.1 Allergy status to other antibiotic agents; Z88.8 Allergy status to other drugs, medicaments and biological substances; Z91.048 Other nonmedicinal substance allergy status; Z88.5 Allergy status to narcotic agent; Z88.6 Allergy status to analgesic agent; Z87.891 Personal history of nicotine dependence
CPT/HCPCS: 36415; 80053; 81001; 84484; 85025; A9270; J1200; J2930; J7030; 96360; 96361; 99284-25

== ENCOUNTER 2019-03-24 15:18 | Emergency (ER) | payer MEDICARE, BC ==
[2019-03-24 15:47] VITALS: BP 217/121; PULSE 70
--- NOTE | 2019-03-24 16:37 | EDM.PDOC ---
ED HPI GENERAL MEDICAL PROBLEM - General Chief Complaint: Skin Complaint Stated Complaint: POSSIBLE SHINGLES Time Seen by Provider: 03/24/19 16:17 Source of Information: Reports: Patient, RN Notes Reviewed History Limitations: Reports: No Limitations - History of Present Illness INITIAL COMMENTS - FREE TEXT/NARRATIVE: 79-year-old female presents emergency department today complaint of shingles, she has had this shingles in the past she developed a rash over the last week looks very similar she has it in multiple areas on her right ankle, on her left chest and she is developed some on her left periorbital region, states is very painful Feet Pain Score (Numeric/FACES): 7 - Related Data Allergies Allergy/AdvReac Type Severity Reaction Status Date / Time latex Allergy Mild Itching Verified 03/24/19 15:58 bacitracin Allergy Cannot Verified 03/24/19 15:58 [From Neosporin Remember ([id number])] bacitracin zinc Allergy Cannot Verified 03/24/19 15:58 [From Neosporin Remember ([id number])] losartan potassium Allergy Cannot Verified 03/24/19 15:58 [From Cozaar] Remember neomycin sulfate Allergy Cannot Verified 03/24/19 15:58 [From Neosporin Remember ([id number])] nickel [Nickel] Allergy unknown Verified 03/24/19 15:58 polymyxin B Allergy Cannot Verified 03/24/19 15:58 [From Neosporin Remember ([id number])] quinapril Allergy Unknown Verified 03/24/19 15:58 amlodipine AdvReac Fainting Verified 03/24/19 15:58 labetalol [Labetalol] AdvReac Fainting Verified 03/24/19 15:58 lisinopril AdvReac Fainting Verified 03/24/19 15:58 meperidine HCl [From Demerol] AdvReac Dizziness Verified 03/24/19 15:58 NSAIDS (Non-Steroidal AdvReac Cannot Verified 03/24/19 15:58 Anti-Inflamma Remember Home Meds: Home Meds Cholecalciferol (Vitamin D3) [Vitamin D3] 1 cap PO DAILY 03/31/13 [History] Folic Acid 400 mcg PO DAILY 03/31/13 [History] Propranolol HCl 40 mg PO BID 03/31/13 [History] cloNIDine [Catapres] 0.1 mg PO DAILY #30 tab 12/23/18 [Rx] Calcitriol [Rocaltrol] 0.25 mcg PO ASDIRECTED 03/12/19 [History] Clopidogrel Bisulfate [Clopidogrel] 75 mg PO DAILY 03/12/19 [History] Losartan [Cozaar] 50 mg PO DAILY 03/12/19 [History] Potassium Chloride 20 meq PO DAILY 03/12/19 [History] atorvaSTATin [Lipitor] 20 mg PO DAILY 03/12/19 [History] Acetaminophen/oxyCODONE [Percocet 325-5 MG] 1 each PO TID PRN #30 tab 03/24/19 [ Rx] valACYclovir [Valtrex] 1,000 mg PO TID #21 tab 03/24/19 [Rx] Past Medical History HEENT History: Reports: Hard of Hearing, Impaired Vision Cardiovascular History: Reports: High Cholesterol, Hypertension Respiratory History: Reports: None Gastrointestinal History: Reports: None Genitourinary History: Reports: Urinary Incontinence 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 Neurological History: Reports: CVA Other Neuro History: CVA "many years ago" Hematologic History: Reports: Blood Transfusion(s) Dermatologic History: Reports: None - Infectious Disease History Infectious Disease History: Reports: Chicken Pox, Mumps - Past Surgical History GI Surgical History: Reports: Cholecystectomy Social & Family History - Family History Family Medical History: Noncontributory - Tobacco Use Smoking Status *Q: Never Smoker - Caffeine Use Caffeine Use: Reports: Coffee, Soda - Recreational Drug Use Recreational Drug Use: No - Living Situation & Occupation Living situation: Reports: Occupation: Retired ED ROS GENERAL - Review of Systems Review Of Systems: See Below Constitutional: Denies: Fever HEENT: Reports: Eye Discharge Respiratory: Reports: No Symptoms Cardiovascular: Reports: No Symptoms GI/Abdominal: Reports: No Symptoms Skin: Reports: Rash ED EXAM, SKIN/RASH Exam: See Below Exam Limited By: No Limitations General Appearance: Alert, WD/WN, No Apparent Distress Respiratory/Chest: No Respiratory Distress Front/Back Body Diagram: 1 - Zoster type rash 2 - Zoster type rash 3 - Zoster type rash Course - Vital Signs Last Recorded V/S: Last Vital Signs Temp 97.3 F 03/24/19 15:56 Pulse 70 03/24/19 15:56 Resp 16 03/24/19 15:56 BP 217/121 H 03/24/19 15:56 Pulse Ox 96 03/24/19 15:56 - Orders/Labs/Meds Meds: Medications Discontinued Medications Generic Name Dose Route Start Last Admin Trade Name Freq PRN Reason Stop Dose Admin Ketorolac Tromethamine 30 mg 03/24/19 16:41 Toradol IM 03/24/19 16:42 ONETIME ONE Valacyclovir HCl 1,000 mg 03/24/19 16:41 Valtrex PO 03/24/19 16:42 NOW STA Departure - Departure Time of Disposition: 16:45 Disposition: Home, Self-Care 01 Condition: Fair Clinical Impression: Herpes zoster ophthalmicus of left eye Shingles Qualifiers: Herpes zoster complications: disseminated zoster Qualified Code(s): B02.7 - Disseminated zoster - Discharge Information Prescriptions: Acetaminophen/oxyCODONE [Percocet 325-5 MG] 1 each PO TID PRN #30 tab PRN Reason: Pain valACYclovir [Valtrex] 1,000 mg PO TID #21 tab Instructions: Shingles Referrals: PCP,None [Primary Care Provider] - Forms: ED Department Discharge Additional Instructions: Start Valtrex 1 tablet 3 times a day for 7 days, use ibuprofen for baseline pain control use Percocet for breakthrough pain your medications have been faxed to [facility], you have an appointment with [facility] tomorrow morning at 7:45 AM please call return to the emergency department for worsening of symptoms Sepsis Event Note - Evaluation Sepsis Screening Result: No Definite Risk - Focused Exam Vital Signs: Vital Signs Temp Pulse Resp BP Pulse Ox 03/24/19 15:56 97.3 F 70 16 217/121 H 96 03/24/19 15:45 97.3 F 70 16 217/121 H 96 Date Exam was Performed: 03/24/19 Time Exam was Performed: 16:44 - Assessment/Plan Plan: Assessment Acuity = acute Site and laterality = disseminated shingles with concern for herpes ophthalmicus Etiology = varicella-zoster virus Manifestations = rash and pain Location of injury = Home Lab values = none Plan Prescription for Valtrex 1 g p.o. 3 times daily x7 days also Percocet 5/325 1 tab p.o. 3 times daily as needed total #[address] Harris wildlife manager [facility] at [phone] kindly agreed to see the patient she has appointment for tomorrow morning at 7:45 AM This note was dictated using [employer] voice recognition software please call with any questions on syntax or grammar.
[2019-03-24] MEDS ORDERED: Ketorolac 30 MG/ML SDV IM ONE (16:41)
[2019-03-24] MEDS ORDERED: valACYclovir 1,000 MG Tab PO STA (16:41)
== END 2019-03-24 17:13 | disposition home or self-care (01) ==
LOC: JP.ED 15:18
DX: B02.30 Zoster ocular disease, unspecified (principal); B02.7 Disseminated zoster; I10 Essential (primary) hypertension; E78.00 Pure hypercholesterolemia, unspecified; Z86.73 Personal history of transient ischemic attack (TIA), and cerebral infarction without residual deficits; Z79.899 Other long term (current) drug therapy; Z88.8 Allergy status to other drugs, medicaments and biological substances; Z91.040 Latex allergy status; Z88.1 Allergy status to other antibiotic agents
CPT/HCPCS: 96372; 99282; 99283; A9270; J1885

== ENCOUNTER 2019-08-02 20:19 | Inpatient (IN) | payer MEDICARE, BC, OTHER ==
[2019-08-02] MEDS ORDERED: fentaNYL 100 MCG/2 ML SDV IVPUSH ONE (21:06)
[2019-08-02] MEDS ORDERED: Sodium Chloride 0.9% 1,000 ML IV ONE (21:06)
--- NOTE | 2019-08-02 21:09 | EDM.PDOC ---
ED HPI GENERAL MEDICAL PROBLEM - General Chief Complaint: Abdominal Pain Stated Complaint: LOWER R SIDE BACK PAIN Time Seen by Provider: 08/02/19 20:55 Source of Information: Reports: Patient History Limitations: Reports: Physical Impairment (Some significant chronic confusion, possible dementia) - History of Present Illness INITIAL COMMENTS - FREE TEXT/NARRATIVE: 79-year-old female who recently was diagnosed with atrial fibrillation, has developed right abdominal and right flank pain for the past 24 hours. It is become fairly intense, she is also had increased shortness of breath and pain with breathing, pain with movement, peritoneal pain in route to the hospital while riding in the car. Denies urinary symptoms, fevers or chills. Several episodes of emesis today. She just feels awful. She is a very difficult historian, inconsistent answers that keep changing. Onset: Gradual Duration: Day(s): (2 days according to the daughter, 1 day according to the patient) Location: Reports: Abdomen Worsens with: Reports: Breathing, Movement Associated Symptoms: Reports: Loss of Appetite, Malaise, Nausea/Vomiting, Shortness of Breath. Denies: Chest Pain, Cough, Fever/Chills Right Abdominal Pain Score (Numeric/FACES): 9 - Related Data Allergies Allergy/AdvReac Type Severity Reaction Status Date / Time latex Allergy Mild Itching Verified 08/02/19 20:34 bacitracin Allergy Cannot Verified 08/02/19 20:34 [From Neosporin Remember ([id number])] bacitracin zinc Allergy Cannot Verified 08/02/19 20:34 [From Neosporin Remember (lyh-svs-[id number])] losartan potassium Allergy Cannot Verified 08/02/19 20:34 [From Cozaar] Remember neomycin sulfate Allergy Cannot Verified 08/02/19 20:34 [From Neosporin Remember ([id number])] nickel [Nickel] Allergy unknown Verified 08/02/19 20:34 polymyxin B Allergy Cannot Verified 08/02/19 20:34 [From Neosporin Remember ([id number]-jpy-[id number])] quinapril Allergy Unknown Verified 08/02/19 20:34 amlodipine AdvReac Fainting Verified 08/02/19 20:34 labetalol [Labetalol] AdvReac Fainting Verified 08/02/19 20:34 lisinopril AdvReac Fainting Verified 08/02/19 20:34 meperidine HCl [From Demerol] AdvReac Dizziness Verified 08/02/19 20:34 NSAIDS (Non-Steroidal AdvReac Cannot Verified 08/02/19 20:34 Anti-Inflamma Remember Home Meds: Home Meds Folic Acid 400 mcg PO DAILY 03/31/13 [History] Clopidogrel Bisulfate [Clopidogrel] 75 mg PO DAILY 03/12/19 [History] Losartan [Cozaar] 100 mg PO DAILY 03/12/19 [History] Potassium Chloride 20 meq PO DAILY 03/12/19 [History] calcitrioL [Rocaltrol] 0.25 mcg PO ASDIRECTED 03/12/19 [History] Propranolol HCl [Propranolol] 80 mg PO DAILY 08/02/19 [History] Warfarin Sodium [Jantoven] 5 mg PO DAILY 08/02/19 [History] atorvaSTATin Calcium [Atorvastatin Calcium] 20 mg PO DAILY 08/02/19 [History] cloNIDine [Catapres] 0.1 mg PO BEDTIME 08/02/19 [History] Past Medical History HEENT History: Reports: Hard of Hearing, Impaired Vision Cardiovascular History: Reports: Afib, High Cholesterol, Hypertension Respiratory History: Reports: None Gastrointestinal History: Reports: None Genitourinary History: Reports: Chronic Renal Insuffiency, Urinary Incontinence , Other (See Below) Other Genitourinary History: atrophic kidney, renal agenesis adn dysgenesis,. 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 Neurological History: Reports: CVA Other Neuro History: CVA "many years ago" Hematologic History: Reports: Anticoagulation Therapy, Blood Transfusion(s) Dermatologic History: Reports: None - Infectious Disease History Infectious Disease History: Reports: Shingles - Past Surgical History Head Surgeries/Procedures: Reports: None GI Surgical History: Reports: Cholecystectomy Social & Family History - Family History Family Medical History: Noncontributory - Tobacco Use Smoking Status *Q: Never Smoker - Caffeine Use Caffeine Use: Reports: Coffee, Soda - Living Situation & Occupation Living situation: Reports: Occupation: Retired ED ROS GENERAL - Review of Systems Review Of Systems: See Below Constitutional: Reports: Malaise, Decreased Appetite. Denies: Fever, Chills HEENT: Denies: Vision Change Respiratory: Reports: Shortness of Breath, Other (Abdominal pain with deep breath) Cardiovascular: Reports: Palpitations. Denies: Chest Pain GI/Abdominal: Reports: Abdominal Pain, Decreased Appetite, Nausea, Vomiting. Denies: Constipation, Diarrhea : Denies: Dysuria Musculoskeletal: Reports: No Symptoms Skin: Reports: Pallor Neurological: Reports: Confusion, Weakness. Denies: Headache Psychiatric: Reports: No Symptoms ED EXAM, GENERAL - Physical Exam Exam: See Below Exam Limited By: No Limitations General Appearance: Alert, Mild Distress (Patient looks fairly uncomfortable, pain with movement) Eye Exam: Bilateral Eye: Normal Inspection (No jaundice) Head: Atraumatic Respiratory/Chest: No Respiratory Distress, Lungs Clear, Other (Despite her apparent dyspnea, lungs are clear to auscultation) Cardiovascular: Tachycardia, Irregularly Irregular GI/Abdominal: Soft, Tender (Very tender with guarding in the right lower quadrant, rebound tenderness is present) Extremities: Pedal Edema (Symmetric 1+ lower extremity edema) Neurological: Alert, Oriented (Patient is oriented to place and time but confused to details of her recent history) Psychiatric: Flat Affect Skin Exam: Warm, Dry Course - Vital Signs Last Recorded V/S: Last Vital Signs Temp 96.3 F L 08/02/19 20:42 Pulse 89 08/03/19 00:02 Resp 28 H 08/03/19 00:02 BP 190/127 H 08/02/19 22:39 Pulse Ox 96 08/03/19 00:02 - Orders/Labs/Meds Orders: Active Orders 24 hr Category Date Time Status Admission Status [Patient Status] [ADT] Routine ADT 08/02/19 23:56 Ordered Chest 1V Frontal [CR] Stat Exams 08/02/19 21:05 Taken CULTURE BLOOD [BC] Urgent Lab 08/02/19 22:35 Received CULTURE BLOOD [BC] Urgent Lab 08/02/19 22:45 Received CULTURE URINE [RM] Stat Lab 08/02/19 21:56 Received Diltiazem [Cardizem] 100 mg Med 08/02/19 23:00 Active Sodium Chloride 0.9% [Normal Saline] 100 ml IV TITRATE Blood Culture x2 Reflex Set [OM.PC] Urgent Oth 08/02/19 22:28 Ordered Medication Orders Diltiazem HCl 100 mg/ Sodium (Chloride) 100 mls @ 5 mls/hr IV TITRATE GINA; Protocol Last Admin: 08/02/19 23:15 Dose: 5 mg/hr, 5 mls/hr Labs: Laboratory Tests 08/02/19 08/02/19 08/02/19 Range/Units 21:17 21:17 21:17 WBC 12.8 H (4.5-11.0) K/uL RBC 4.57 (3.30-5.50) M/uL Hgb 12.8 (12.0-15.0) g/dL Hct 40.8 (36.0-48.0) % MCV 89 (80-98) fL MCH 28 (27-31) pg MCHC 31 L (32-36) % Plt Count 359 (150-400) K/uL Neut % (Auto) 87 H (36-66) % Lymph % (Auto) 8 L (24-44) % [place] % (Auto) 5 (2-6) % Eos % (Auto) 0 L (2-4) % Baso % (Auto) 1 (0-1) % PT 35.6 H (9.5-12.0) sec INR 3.54 H (0.80-1.20) Sodium 140 (140-148) mmol/L Potassium 5.0 (3.6-5.2) mmol/L Chloride 108 (100-108) mmol/L Carbon Dioxide 20 L (21-32) mmol/L Anion Gap 17.0 H (5.0-14.0) mmol/L BUN 28 H (7-18) mg/dL Creatinine 2.7 H (0.6-1.0) mg/dL Est Cr Clr Drug Dosing 15.07 mL/min Estimated GFR (MDRD) 17 L (>60) Glucose 129 H (74-106) mg/dL Lactic Acid (0.4-2.0) mmol/L Calcium 9.0 (8.5-10.1) mg/dL Total Bilirubin 0.9 D (0.2-1.0) mg/dL AST 38 H D (15-37) U/L ALT 73 D (12-78) U/L Alkaline Phosphatase 177 H D (46-116) U/L Troponin I < 0.017 (0.000-0.056) ng/mL Total Protein 7.0 (6.4-8.2) g/dL Albumin 3.4 (3.4-5.0) g/dL Globulin 3.6 H (2.3-3.5) g/dL Albumin/Globulin Ratio 0.9 L (1.2-2.2) Amylase (25-115) U/L Lipase (73-393) U/L Urine Color (YELLOW) Urine Appearance (CLEAR) Urine pH (5.0-8.0) Ur Specific [place] (1.008-1.030) Urine Protein (NEGATIVE) mg/dL Urine Glucose (UA) (NEGATIVE) mg/dL Urine Ketones (NEGATIVE) mg/dL Urine Occult Blood (NEGATIVE) Urine Nitrite (NEGATIVE) Urine Bilirubin (NEGATIVE) Urine Urobilinogen (0.2-1.0) EU/dL Ur Leukocyte Esterase (NEGATIVE) Urine RBC (0-5) Urine WBC (0-5) Ur Epithelial Cells Amorphous Sediment Urine Bacteria Urine Mucus 08/02/19 08/02/19 08/02/19 Range/Units 21:39 22:28 23:00 WBC (4.5-11.0) K/uL RBC (3.30-5.50) M/uL Hgb (12.0-15.0) g/dL Hct (36.0-48.0) % MCV (80-98) fL MCH (27-31) pg MCHC (32-36) % Plt Count (150-400) K/uL Neut % (Auto) (36-66) % Lymph % (Auto) (24-44) % [place] % (Auto) (2-6) % Eos % (Auto) (2-4) % Baso % (Auto) (0-1) % PT (9.5-12.0) sec INR (0.80-1.20) Sodium (140-148) mmol/L Potassium (3.6-5.2) mmol/L Chloride (100-108) mmol/L Carbon Dioxide (21-32) mmol/L Anion Gap (5.0-14.0) mmol/L BUN (7-18) mg/dL Creatinine (0.6-1.0) mg/dL Est Cr Clr Drug Dosing mL/min Estimated GFR (MDRD) (>60) Glucose (74-106) mg/dL Lactic Acid 1.6 (0.4-2.0) mmol/L Calcium (8.5-10.1) mg/dL Total Bilirubin (0.2-1.0) mg/dL AST (15-37) U/L ALT (12-78) U/L Alkaline Phosphatase (46-116) U/L Troponin I (0.000-0.056) ng/mL Total Protein (6.4-8.2) g/dL Albumin (3.4-5.0) g/dL Globulin (2.3-3.5) g/dL Albumin/Globulin Ratio (1.2-2.2) Amylase 42 (25-115) U/L Lipase 140 (73-393) U/L Urine Color Yellow (YELLOW) Urine Appearance Cloudy A (CLEAR) Urine pH 5.5 (5.0-8.0) Ur Specific [place] >= 1.030 (1.008-1.030) Urine Protein >=300 H (NEGATIVE) mg/dL Urine Glucose (UA) Negative (NEGATIVE) mg/dL Urine Ketones Negative (NEGATIVE) mg/dL Urine Occult Blood Small H (NEGATIVE) Urine Nitrite Positive H (NEGATIVE) Urine Bilirubin Negative (NEGATIVE) Urine Urobilinogen 0.2 (0.2-1.0) EU/dL Ur Leukocyte Esterase Negative (NEGATIVE) Urine RBC 0-5 (0-5) Urine WBC 20-30 H (0-5) Ur Epithelial Cells Rare Amorphous Sediment Not seen Urine Bacteria Many Urine Mucus Not seen Meds: Medications Generic Name Dose Route Start Last Admin Trade Name Freq PRN Reason Stop Dose Admin Diltiazem HCl 100 mg/ Sodium 100 mls @ 5 mls/hr 08/02/19 23:00 08/02/19 23:15 Chloride IV 5 mg/hr TITRATE GINA 5 mls/hr Administration Protocol 5 MG/HR Discontinued Medications Generic Name Dose Route Start Last Admin Trade Name Freq PRN Reason Stop Dose Admin Diltiazem HCl 15 mg 08/02/19 23:46 08/02/19 23:59 Diltiazem IVPUSH 08/02/19 23:47 15 mg ONETIME ONE Administration Fentanyl 50 mcg 08/02/19 21:06 08/02/19 21:27 Sublimaze IVPUSH 08/02/19 21:07 50 mcg ONETIME ONE Administration Furosemide 40 mg 08/02/19 22:49 08/02/19 22:54 Lasix IVPUSH 08/02/19 22:50 40 mg ONETIME ONE Administration Sodium Chloride 1,000 mls @ 999 mls/hr 08/02/19 21:06 08/02/19 21:27 Normal Saline IV 08/02/19 22:06 999 mls/hr ONETIME ONE Administration Ceftriaxone Sodium 1 gm/ 50 mls @ 100 mls/hr 08/02/19 22:34 08/02/19 22:50 Sodium Chloride IV 08/02/19 23:03 100 mls/hr ONETIME ONE Administration Lorazepam 1 mg 08/02/19 23:47 08/02/19 23:59 Ativan IVPUSH 08/02/19 23:48 1 mg ONETIME ONE Administration Metoprolol Tartrate 5 mg 08/02/19 21:44 08/02/19 21:48 Lopressor IVPUSH 08/02/19 21:45 5 mg ONETIME ONE Administration Ondansetron HCl 4 mg 08/02/19 21:58 08/02/19 22:02 Zofran IVPUSH 08/02/19 21:59 4 mg ONETIME ONE Administration - Re-Assessments/Exams Free Text/Narrative Re-Assessment/Exam: 08/02/19 21:49 An IV was started, 50 mcg of fentanyl was given for pain control and normal saline started. CBC, CMP, mini cath UA, 1 view chest x-ray were obtained shortly followed by a CT of the abdomen and pelvis without contrast. 08/02/19 22:29 White count is 12,800, UA shows nitrite positive urine with many bacteria and this was a catheter specimen. Culture was initiated. She did develop some nausea and emesis so was given 4 mg of IV Zofran along with 5 mg of IV metoprolol to try to control her atrial fibrillation rate. Chest x-ray does show mild congestive heart failure, CT also showed pleural effusions, formal reading is pending. Lactic acid was 1.6 but blood cultures will be drawn and then patient will be given 1 g of Rocephin IV. 08/02/19 22:57 Patient responded only minimally to the IV metoprolol, rate control is needed along with diuresis. Patient will be started on a Cardizem drip at 5 mg an hour and given 20 mg of IV Lasix. CT is still pending. 08/02/19 23:49 IMPRESSION: Bilateral pleural effusions, right greater than left. Bibasilar interlobular septal thickening. Correlate for interstitial pulmonary edema. No evidence of gross appendicitis, diverticulitis or mechanical bowel obstruction. Mild to moderate rectal stool. An atrophic left kidney. No obstructive uropathy. Perirenal changes, nonspecific. Correlate with urinalysis and renal function tests. A 2.4 cm left adnexal low-density lesion. Recommend sonographic evaluation and follow-up. 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 Amylase and lipase are normal. Patient continued to be somewhat agitated and only had partially response to the Cardizem drip so 15 mg of IV Cardizem was given as a bolus along with [address] Oh he accepted her for admission to the ICU. Departure - Departure Time of Disposition: 00:19 Disposition: Admitted As Inpatient 68 Clinical Impression: Pyelonephritis, Atrial fibrillation with RVR Congestive heart failure Qualifiers: Heart failure type: unspecified Heart failure chronicity: acute Qualified Code( s): I50.9 - Heart failure, unspecified - Discharge Information Referrals: PCP,None [Primary Care Provider] - Forms: ED Department Discharge Care Plan Goals: Patient is to be admitted to the ICU for atrial fibrillation with RVR, congestive heart failure and pyelonephritis. Sepsis Event Note - Evaluation Sepsis Screening Result: Possible Severe Sepsis Risk - Focused Exam Vital Signs: Vital Signs Temp Pulse Pulse Resp BP BP Pulse Ox 08/03/19 00:02 89 28 H 96 08/02/19 22:39 102 H 26 H 190/127 H 94 L 08/02/19 22:29 130 H 24 H 201/138 H 90 L 08/02/19 22:04 139 H 22 H 180/100 H 92 L 08/02/19 21:48 139 H 179/40 H 08/02/19 21:42 125 H 26 H 179/140 H 93 L 08/02/19 20:42 96.3 F L 112 H 18 140/87 96 08/02/19 20:35 96.3 F L 112 H 18 140/87 96 Date Exam was Performed: 08/03/19 Time Exam was Performed: 00:20 - My Orders Last 24 Hours: My Active Orders 08/02/19 21:05 Chest 1V Frontal [CR] Stat 08/02/19 21:56 CULTURE URINE [RM] Stat 08/02/19 22:28 Blood Culture x2 Reflex Set [OM.PC] Urgent 08/02/19 22:35 CULTURE BLOOD [BC] Urgent 08/02/19 22:45 CULTURE BLOOD [BC] Urgent 08/02/19 23:00 Diltiazem [Cardizem] 100 mg Sodium Chloride 0.9% [Normal Saline] 100 ml IV TITRATE 08/02/19 23:56 Admission Status [Patient Status] [ADT] Routine - Assessment/Plan Last 24 Hours: My Active Orders 08/02/19 21:05 Chest 1V Frontal [CR] Stat 08/02/19 21:56 CULTURE URINE [RM] Stat 08/02/19 22:28 Blood Culture x2 Reflex Set [OM.PC] Urgent 08/02/19 22:35 CULTURE BLOOD [BC] Urgent 08/02/19 22:45 CULTURE BLOOD [BC] Urgent 08/02/19 23:00 Diltiazem [Cardizem] 100 mg Sodium Chloride 0.9% [Normal Saline] 100 ml IV TITRATE 08/02/19 23:56 Admission Status [Patient Status] [ADT] Routine
[2019-08-02] MEDS ORDERED: Metoprolol Tartrate 5 MG/5 ML SDV IVPUSH ONE (21:44)
[2019-08-02] MEDS ORDERED: Ondansetron 4 MG/2 ML SDV IVPUSH ONE (21:58)
[2019-08-02] MEDS ORDERED: Furosemide 40 MG/4 ML VIAL IVPUSH ONE (22:49)
[2019-08-02] MEDS: cefTRIAXone 1 GM in Sodium Chloride 0.9% 50 ML IV ONE (22:50)
[2019-08-02] MEDS: Diltiazem 100 MG in Sodium Chloride 0.9% 100 ML IV SCH (23:15)
--- NOTE | 2019-08-02 23:35 | CRLCT ---
INDICATION: Abdominal pain TECHNIQUE: CT abdomen and pelvis without contrast. COMPARISON: None available FINDINGS: Lower chest: Bilateral pleural effusions, right greater than left. Bibasilar interlobular septal thickening and mild subsegmental atelectasis. Posterior pericardial fluid. Liver: Unremarkable. Spleen: Apparent small calcified granulomas. Pancreas: Small calcifications along the anterior aspect of the pancreatic head which could be vascular or postinflammatory pancreatic parenchymal. Gallbladder and bile ducts: Cholecystectomy. Adrenal glands: Unremarkable. Kidneys: An atrophic left kidney. No hydronephrosis or discrete, measurable urolithiasis. Right renal low-density lesions, measuring up to 1.1 cm which could represent cysts. Perirenal changes, nonspecific. GI tract: No bowel obstruction. The appendix is not well delineated. Few sigmoid diverticula without diverticulitis. Mild to moderate rectal stool load. Vascular structures: Atherosclerotic changes. Borderline aneurysmal dilatation of the distal thoracic aorta measuring 3.1 cm at the level of the diaphragmatic rah. An infrarenal aortic aneurysm measuring 3.7 x 3.0 cm. 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 Ectasia of the distal aorta measuring 2.9 x 2.4 cm. A fem-fem graft. Lymph nodes: Unremarkable. Miscellaneous: No significant free fluid or free air. Pelvic Organs: No gross uterine abnormality seen. A 2.4 x 1.8 cm left adnexal low-density structure and a 9 mm right adnexal low-density structure. A contracted bladder. Bones: Several small sclerotic foci in the right pelvis, nonspecific. IMPRESSION: Bilateral pleural effusions, right greater than left. Bibasilar interlobular septal thickening. Correlate for interstitial pulmonary edema. No evidence of gross appendicitis, diverticulitis or mechanical bowel obstruction. Mild to moderate rectal stool. An atrophic left kidney. No obstructive uropathy. Perirenal changes, nonspecific. Correlate with urinalysis and renal function tests. A 2.4 cm left adnexal low-density lesion. Recommend sonographic evaluation and follow-up. 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 Dictated by Lalito Walton MD @ 08/02/2019 11:25:30 PM Please note that all CT scans at this facility use dose modulation, iterative reconstruction, and/or weight-based dosing when appropriate to reduce radiation dose to as low as reasonably achievable. Dictated by: Lalito Walton MD @ 08/02/2019 23:35:05 (Electronically Signed)
[2019-08-02] MEDS ORDERED: Diltiazem 25 MG/5 ML SDV IVPUSH ONE (23:46)
[2019-08-02] MEDS ORDERED: LORazepam 2 MG/ML SDV IVPUSH ONE (23:47)
[2019-08-03] MEDS ORDERED: Ondansetron 4 MG/2 ML SDV IVPUSH PRN (00:31)
[2019-08-03] MEDS ORDERED: diphenhydrAMINE 50 MG/ML SDV IVPUSH PRN (00:31)
[2019-08-03] MEDS ORDERED: Naloxone 0.4 MG/ML SDV IVPUSH PRN (00:31)
[2019-08-03] MEDS ORDERED: diphenhydrAMINE 25 MG Cap PO PRN (00:31)
[2019-08-03] MEDS ORDERED: Acetaminophen 325 MG Tab PO PRN (00:31)
[2019-08-03] MEDS ORDERED: HYDROmorphone/Normal Saline 15 MG/30 ML PCA IV SCH (00:45)
--- NOTE | 2019-08-03 03:01 | HP ---
IDENTIFYING DATA: Claire An is a 79-year-old female from [place]. CHIEF COMPLAINT: Reported abdominal pain. HISTORY OF PRESENT ILLNESS: Elderly female with a history of chronic atrial fibrillation, hypertension, hyperlipidemia, previous CVA, and peripheral vascular disease, presented with complaints of right abdominal and flank pain of 1 to 2 days duration accompanied by reports of shortness of breath and chest pain with breathing. She had had no definitive fever or chills. Did have emesis on day of admission. No urinary urgency, frequency, or dysuria. During ER evaluation, analgesic and sedation therapies were administered for general discomfort. She is now somnolent and minimally arousable. PAST MEDICAL HISTORY: As noted, includes atrial fibrillation, hyperlipidemia, hypertension, and peripheral vascular disease. She has a reported left-sided atrophic kidney with chronic renal insufficiency noted. Records also indicate a history of cerebral vascular accident in the remote past with current anticoagulant therapy. PRIOR SURGERIES: Include cholecystectomy. HABITS: No tobacco use noted. Does use caffeinated beverages. Alcohol use is unknown. ALLERGIES: REPORTED TO LATEX, BACITRACIN, LOSARTAN, NEOMYCIN SULFATE, NICKELS, POLYMYXIN B, QUINAPRIL, AMLODIPINE, LABETALOL, LISINOPRIL, MEPERIDINE, AND REPORTS OF NONSTEROIDAL SENSITIVITY. CURRENT MEDICATIONS: Folic acid 400 mg daily, clopidogrel 75 mg daily, losartan 100 mg daily, potassium chloride 20 mEq daily, calcitriol 0.25 mcg daily, propranolol 80 mg daily, warfarin 5 mg daily, atorvastatin 20 mg daily, clonidine 0.1 mg at bedtime. SOCIAL HISTORY: Retired. Residing with in their [place] residence. No additional social history is currently available. FAMILY HISTORY: No knowledge of familial members with similar acute illnesses. No recent febrile illness reported. REVIEW OF SYSTEMS: NEUROLOGIC: Reported history of CVA, unsure of residual neurologic deficits. Glasses are worn. She has reports of diminished hearing acuity. No history of seizures. CARDIAC: Hypertension, hyperlipidemia, and chronic renal failure with recent identified atrial fibrillation on Coumadin anticoagulant therapy. RESPIRATORY: No noted history of asthma, emphysema, or recent acute respiratory infections. GI: Previous cholecystectomy. No reported history of chronic hepatic disease or dyspepsia. No diarrhea is reported. : Flank and right lower quadrant abdominal pain without urinary incontinence. Urinalysis is obtained by catheterization today. PHYSICAL EXAMINATION: VITAL SIGNS: Temperature on admission 96.3 degrees Fahrenheit, pulse 102 and irregular, respiratory rate 26, blood pressure 190/127, O2 saturations 94% on room air. HEENT: Pupils reactive to light. Sclerae anicteric. Extraocular eye movements are symmetrical. Canals and TMs are normal. No nasal congestion or drainage. Oral mucosa is slightly dry. NECK: Brisk irregular carotid pulses. No stridor, adenopathy, or nuchal rigidity. LUNGS: Some mild expiratory rhonchi, inspiratory rales at the bases. Symmetrical aeration. Mildly tachycardic respiratory pattern with panting. HEART: Atrial fibrillation by cardiac monitoring with rapid ventricular rate, now slowing with IV diltiazem bolus and infusion. HEART: Heart sounds are irregular, borderline tachycardic. No murmurs or gallops noted. ABDOMEN: Apparent general discomfort to deep palpation. No localized pain. No apparent rebound. No CVA tenderness to percussion. Good femoral pulses. No abdominal bruits are noted. EXTREMITIES: Moraine with capillary refill less than 3 seconds. Palpable radial pulses. Lower extremities are cool and non-diaphoretic. No ischemic skin changes. LABORATORY DATA: On admission; WBC 12.8, hemoglobin 12.8, hematocrit 40.8, platelet count 359,000. INR is supratherapeutic at 3.54. Sodium 140, potassium 5, BUN 28, creatinine 2.7, GFR 17, glucose 129, AST 38, ALT 73, alkaline phosphatase 177. Troponin less than 0.017. Lactic acid 1.6. Urinalysis, specific gravity greater than 1.030, small amount of occult blood on cath specimen, positive nitrites, 20 to 30 wbc's, 0 to 5 rbc's, many bacteria, rare epithelial cells. Chest x-ray suggesting mild congestive heart failure. Bilateral pleural effusions confirmed on CT scan. CT of the abdomen showed no evidence of appendicitis, diverticulitis, or bowel obstruction. Atrophic left kidney without obstructive uropathy. Vascular changes included atherosclerotic changes of large vessels of the abdomen with aortic and left renal artery aneurysms. IMPRESSION: 1. Abdominal pain, suspected pyelonephritis with bacteria and pyuria. 2. History of atrophic left kidney with chronic stage 4 renal disease. 3. Hypertension. 4. Hyperlipidemia. 5. Atrial fibrillation with rapid ventricular rate. PLAN: The patient did receive diltiazem in IV infusion with subsequent bolus for reasons of rapid ventricular rate. She remains in atrial fibrillation, though rate is now slowing to a more manageable rate of 90 to 110. We will continue with IV diltiazem. With supratherapeutic protime INR, we will obtain daily INR reviews and hold Coumadin at the current time with resumption when the INR is falling into the desired range. Has been provided IV Rocephin as a single dose following set up of urine and blood cultures. Additionally, COVID-19 nasal swab will be obtained to exclude the possibility of this acute viral infection. We will provide 2 g sodium diet as able. We will provide analgesic therapy for abdominal pain and IV fluid as needed for fluid support. Continue with standard oral medications if able to take. If she remains quite sedated, oral medications will be held. Full code status is instituted. Follow up labs including daily protime, INR, CBC, and BMP are requested. Willian Oh MD /[id number]
[2019-08-03] MEDS: Diltiazem 100 MG in Sodium Chloride 0.9% 100 ML IV SCH (06:40)
--- NOTE | 2019-08-03 07:12 | PN ---
DATE OF SERVICE: 08/03/2019 SUBJECTIVE: Adult female was admitted in the late evening hours with right- sided abdominal pain of 24-36 hours' duration. She had accompanying complaints of nonspecific chest pain and nonproductive cough. Denied nausea, emesis, diarrhea, or acute urinary symptoms. She was found to have evidence of bacteria and pyuria on urinalysis with culture pending. She was admitted with a presumptive diagnosis of pyelonephritis. With pain, received analgesic and anxiolytic therapies at time of admission leading to significant sedation. She is more awake and alert this morning. Oriented to person, place, and time. She recognizes the examiner. She reports the abdominal pain is significantly improved. Denies cough, congestion, or shortness of breath at the present time. Does have a remote history of tobacco use, but denies a history of obstructive pulmonary disease. No palpitations. No angina-like chest pain noted. She reports she lives with her . He is frail at 81 years of age, though has no acute respiratory symptoms. They live independently in their [place], performing ADLs without assistance. Family, numbering 5 children by her report, live in the immediate area. OBJECTIVE: VITAL SIGNS: Temperature 35.8 degrees centigrade, blood pressure 165/96, respiratory rate 21, with O2 sats of 95% with oxygen at 3 L/min, pulse rate 108. Atrial fibrillation by cardiac monitoring with a diltiazem drip remaining on. INR at time of admission yesterday evening was supratherapeutic. LUNGS: Nontachypneic. Some diminished sounds with inspiratory rales at the left base. No wheezes or rhonchi noted. ABDOMEN: Nondistended with active sounds. She has general tenderness across the abdomen, more significantly over the right mid to lower abdomen. No guarding, rebound, or referred pain. Right flank pain persists. EXTREMITIES: Warm and pink, nondiaphoretic, nonedematous. IMPRESSION AND PLAN: 1. Presumptive diagnosis of pyelonephritis. Urine and blood cultures are pending. She remains on IV Rocephin with symptomatic improvement in her pain. Nursing staff reports incontinence during the nighttime hours, though with increased awareness this has improved. She denies nausea or emesis. She is taking small amounts of fluids. 2. Atrial fibrillation, rapid ventricular rate on presentation. Rate has slowed with diltiazem infusion and standard use of her maintenance metoprolol. 3. Complaints of chest pain on presentation. Noted history of previous tobacco use, now abstaining. Suggestion of congestive heart failure with bilateral pleural effusions by chest x-ray and CT on admission. No acute respiratory symptoms at the current time. We will continue to monitor cardiorespiratory status. Additionally, coronavirus disease-19 screening is pending. Willian Oh MD /[id number] MTDD
[2019-08-03] MEDS: Potassium Chloride 20 MEQ Tab.ER PO SCH (08:23)
[2019-08-03] MEDS: Folic Acid 1 MG Tab PO SCH (08:23)
[2019-08-03] MEDS: Losartan 50 MG Tab PO SCH (08:24)
[2019-08-03] MEDS: atorvaSTATin 20 MG Tab PO SCH (08:24)
[2019-08-03] MEDS: Clopidogrel 75 MG Tab PO SCH (08:24)
--- NOTE | 2019-08-03 09:52 | CR ---
CHEST: Portable 08/02/2019 at 2205 CLINICAL HISTORY:Abdominal pain COMPARISON:CT 07/20/2018 FINDINGS: Heart is enlarged. Pulmonary vascularity is congested. There is diffuse bilateral infiltrate with some Ric's B lines B lines in both lower lungs. There are small bilateral effusions. Impression: Moderate changes of CHF.
--- NOTE | 2019-08-03 09:54 | PCM.PN ---
- General Info Date of Service: 08/03/19 Subjective Update: Ms. An is a 79-year-old woman mated through the emergency department last night by Drs. Oh. They have chronic kidney disease stage IV and had been feeling extremely weak and tired. She also did experience some flank pain and was noted to have evidence of urinary tract infection on urinalysis. She was in atrial fibrillation with rapid ventricular response and chest x-ray suggests pulmonary edema. She has been hypoxic since admission requiring 4 L of supplemental oxygen to maintain adequate saturations. Cultures have been obtained and she was started on IV ceftriaxone for antibiotic therapy pending culture results. She also has been on IV diltiazem for rate control of her atrial fibrillation. Functional Status: Reports: Tolerating Diet, Urinating - Review of Systems General: Reports: Weakness, Fatigue. Denies: Fever, Chills Pulmonary: Reports: Shortness of Breath. Denies: Pleuritic Chest Pain, Cough, Sputum, Hemoptysis, Wheezing Cardiovascular: Reports: Dyspnea on Exertion, Edema. Denies: Chest Pain, Palpitations, Orthopnea, PND Gastrointestinal: Reports: No Symptoms Genitourinary: Reports: Flank Pain. Denies: Dysuria, Frequency, Burning, Pain, Urgency - Patient Data Vitals - Most Recent: Last Vital Signs Temp 97.4 F 08/03/19 08:00 Pulse 82 08/03/19 09:00 Resp 19 08/03/19 09:00 BP 144/90 H 08/03/19 09:00 Pulse Ox 99 08/03/19 09:00 Weight - Most Recent: 132 lb I&O - Last 24 Hours: Intake & Output 08/02/19 08/03/19 08/03/19 22:59 06:59 14:59 Intake Total 1050 Output Total 100 100 Balance 950 -100 Lab Results Last 24 Hours: Laboratory Results - last 24 hr 08/02/19 08/02/19 08/02/19 Range/Units 21:17 21:17 21:17 WBC 12.8 H (4.5-11.0) K/uL RBC 4.57 (3.30-5.50) M/uL Hgb 12.8 (12.0-15.0) g/dL Hct 40.8 (36.0-48.0) % MCV 89 (80-98) fL MCH 28 (27-31) pg MCHC 31 L (32-36) % Plt Count 359 (150-400) K/uL Neut % (Auto) 87 H (36-66) % Lymph % (Auto) 8 L (24-44) % Ware % (Auto) 5 (2-6) % Eos % (Auto) 0 L (2-4) % Baso % (Auto) 1 (0-1) % PT 35.6 H (9.5-12.0) sec INR 3.54 H (0.80-1.20) Sodium 140 (140-148) mmol/L Potassium 5.0 (3.6-5.2) mmol/L Chloride 108 (100-108) mmol/L Carbon Dioxide 20 L (21-32) mmol/L Anion Gap 17.0 H (5.0-14.0) mmol/L BUN 28 H (7-18) mg/dL Creatinine 2.7 H (0.6-1.0) mg/dL Est Cr Clr Drug Dosing 15.07 mL/min Estimated GFR (MDRD) 17 L (>60) Glucose 129 H (74-106) mg/dL Lactic Acid (0.4-2.0) mmol/L Calcium 9.0 (8.5-10.1) mg/dL Total Bilirubin 0.9 D (0.2-1.0) mg/dL AST 38 H D (15-37) U/L ALT 73 D (12-78) U/L Alkaline Phosphatase 177 H D (46-116) U/L Troponin I < 0.017 (0.000-0.056) ng/mL Total Protein 7.0 (6.4-8.2) g/dL Albumin 3.4 (3.4-5.0) g/dL Globulin 3.6 H (2.3-3.5) g/dL Albumin/Globulin Ratio 0.9 L (1.2-2.2) Amylase (25-115) U/L Lipase (73-393) U/L Urine Color (YELLOW) Urine Appearance (CLEAR) Urine pH (5.0-8.0) Ur Specific Rush (1.008-1.030) Urine Protein (NEGATIVE) mg/dL Urine Glucose (UA) (NEGATIVE) mg/dL Urine Ketones (NEGATIVE) mg/dL Urine Occult Blood (NEGATIVE) Urine Nitrite (NEGATIVE) Urine Bilirubin (NEGATIVE) Urine Urobilinogen (0.2-1.0) EU/dL Ur Leukocyte Esterase (NEGATIVE) Urine RBC (0-5) Urine WBC (0-5) Ur Epithelial Cells Amorphous Sediment Urine Bacteria Urine Mucus 08/02/19 08/02/19 08/02/19 Range/Units 21:39 22:28 23:00 WBC (4.5-11.0) K/uL RBC (3.30-5.50) M/uL Hgb (12.0-15.0) g/dL Hct (36.0-48.0) % MCV (80-98) fL MCH (27-31) pg MCHC (32-36) % Plt Count (150-400) K/uL Neut % (Auto) (36-66) % Lymph % (Auto) (24-44) % Ware % (Auto) (2-6) % Eos % (Auto) (2-4) % Baso % (Auto) (0-1) % PT (9.5-12.0) sec INR (0.80-1.20) Sodium (140-148) mmol/L Potassium (3.6-5.2) mmol/L Chloride (100-108) mmol/L Carbon Dioxide (21-32) mmol/L Anion Gap (5.0-14.0) mmol/L BUN (7-18) mg/dL Creatinine (0.6-1.0) mg/dL Est Cr Clr Drug Dosing mL/min Estimated GFR (MDRD) (>60) Glucose (74-106) mg/dL Lactic Acid 1.6 (0.4-2.0) mmol/L Calcium (8.5-10.1) mg/dL Total Bilirubin (0.2-1.0) mg/dL AST (15-37) U/L ALT (12-78) U/L Alkaline Phosphatase (46-116) U/L Troponin I (0.000-0.056) ng/mL Total Protein (6.4-8.2) g/dL Albumin (3.4-5.0) g/dL Globulin (2.3-3.5) g/dL Albumin/Globulin Ratio (1.2-2.2) Amylase 42 (25-115) U/L Lipase 140 (73-393) U/L Urine Color Yellow (YELLOW) Urine Appearance Cloudy A (CLEAR) Urine pH 5.5 (5.0-8.0) Ur Specific Rush >= 1.030 (1.008-1.030) Urine Protein >=300 H (NEGATIVE) mg/dL Urine Glucose (UA) Negative (NEGATIVE) mg/dL Urine Ketones Negative (NEGATIVE) mg/dL Urine Occult Blood Small H (NEGATIVE) Urine Nitrite Positive H (NEGATIVE) Urine Bilirubin Negative (NEGATIVE) Urine Urobilinogen 0.2 (0.2-1.0) EU/dL Ur Leukocyte Esterase Negative (NEGATIVE) Urine RBC 0-5 (0-5) Urine WBC 20-30 H (0-5) Ur Epithelial Cells Rare Amorphous Sediment Not seen Urine Bacteria Many Urine Mucus Not seen 08/03/19 08/03/19 Range/Units 05:54 05:54 WBC (4.5-11.0) K/uL RBC (3.30-5.50) M/uL Hgb (12.0-15.0) g/dL Hct (36.0-48.0) % MCV (80-98) fL MCH (27-31) pg MCHC (32-36) % Plt Count (150-400) K/uL Neut % (Auto) (36-66) % Lymph % (Auto) (24-44) % Ware % (Auto) (2-6) % Eos % (Auto) (2-4) % Baso % (Auto) (0-1) % PT 32.5 H (9.5-12.0) sec INR 3.21 H (0.80-1.20) Sodium 142 (140-148) mmol/L Potassium 4.6 (3.6-5.2) mmol/L Chloride 109 H (100-108) mmol/L Carbon Dioxide 20 L (21-32) mmol/L Anion Gap 17.6 H (5.0-14.0) mmol/L BUN 31 H (7-18) mg/dL Creatinine 2.6 H (0.6-1.0) mg/dL Est Cr Clr Drug Dosing 15.65 mL/min Estimated GFR (MDRD) 18 L (>60) Glucose 119 H (74-106) mg/dL Lactic Acid (0.4-2.0) mmol/L Calcium 8.6 (8.5-10.1) mg/dL Total Bilirubin (0.2-1.0) mg/dL AST (15-37) U/L ALT (12-78) U/L Alkaline Phosphatase (46-116) U/L Troponin I (0.000-0.056) ng/mL Total Protein (6.4-8.2) g/dL Albumin (3.4-5.0) g/dL Globulin (2.3-3.5) g/dL Albumin/Globulin Ratio (1.2-2.2) Amylase (25-115) U/L Lipase (73-393) U/L Urine Color (YELLOW) Urine Appearance (CLEAR) Urine pH (5.0-8.0) Ur Specific Rush (1.008-1.030) Urine Protein (NEGATIVE) mg/dL Urine Glucose (UA) (NEGATIVE) mg/dL Urine Ketones (NEGATIVE) mg/dL Urine Occult Blood (NEGATIVE) Urine Nitrite (NEGATIVE) Urine Bilirubin (NEGATIVE) Urine Urobilinogen (0.2-1.0) EU/dL Ur Leukocyte Esterase (NEGATIVE) Urine RBC (0-5) Urine WBC (0-5) Ur Epithelial Cells Amorphous Sediment Urine Bacteria Urine Mucus Med Orders - Current: Current Medications Acetaminophen (Tylenol) 650 mg PO Q4H PRN PRN Reason: Pain Atorvastatin Calcium (Lipitor) 20 mg PO DAILY [facility] Last Admin: 08/03/19 08:24 Dose: 20 mg Bumetanide (Bumex) 4 mg IVPUSH ONETIME ONE Stop: 08/03/19 09:28 Clopidogrel Bisulfate (Plavix) 75 mg PO DAILY [facility] Last Admin: 08/03/19 08:24 Dose: 75 mg Diphenhydramine HCl (Benadryl) 25 mg IVPUSH Q6H PRN PRN Reason: Itching Diphenhydramine HCl (Benadryl) 25 mg PO Q6H PRN PRN Reason: Itching Folic Acid (Folic Acid) 0.5 mg PO DAILY [facility] Last Admin: 08/03/19 08:23 Dose: 0.5 mg Hydromorphone HCl (Dilaudid Knowledge Architect 15 Mg In Ns 30 Ml) 15 mg IV ASDIRECTED [facility]; Protocol Diltiazem HCl 100 mg/ Sodium (Chloride) 100 mls @ 5 mls/hr IV TITRATE [facility]; Protocol Last Admin: 08/03/19 06:40 Dose: 15 mg/hr, 15 mls/hr Ceftriaxone Sodium 1 gm/ (Sodium Chloride) 50 mls @ 100 mls/hr IV Q24H [facility] Losartan Potassium (Cozaar) 100 mg PO DAILY [facility] Last Admin: 08/03/19 08:24 Dose: 100 mg Metoprolol Tartrate (Lopressor) 25 mg PO Q6H [facility] Naloxone HCl (Narcan) 0.04 mg IVPUSH Q3M PRN PRN Reason: Respiratory Depression Ondansetron HCl (Zofran) 4 mg IVPUSH Q6H PRN PRN Reason: Nausea/Vomiting Potassium Chloride (Klor-Con M20) 20 meq PO DAILY [facility] Last Admin: 08/03/19 08:23 Dose: 20 meq Discontinued Medications Diltiazem HCl (Diltiazem) 15 mg IVPUSH ONETIME ONE Stop: 08/02/19 23:47 Last Admin: 08/02/19 23:59 Dose: 15 mg Fentanyl (Sublimaze) 50 mcg IVPUSH ONETIME ONE Stop: 08/02/19 21:07 Last Admin: 08/02/19 21:27 Dose: 50 mcg Furosemide (Lasix) 40 mg IVPUSH ONETIME ONE Stop: 08/02/19 22:50 Last Admin: 08/02/19 22:54 Dose: 40 mg Sodium Chloride (Normal Saline) 1,000 mls @ 999 mls/hr IV ONETIME ONE Stop: 08/02/19 22:06 Last Admin: 08/02/19 21:27 Dose: 999 mls/hr Ceftriaxone Sodium 1 gm/ (Sodium Chloride) 50 mls @ 100 mls/hr IV ONETIME ONE Stop: 08/02/19 23:03 Last Admin: 08/02/19 22:50 Dose: 100 mls/hr Lorazepam (Ativan) 1 mg IVPUSH ONETIME ONE Stop: 08/02/19 23:48 Last Admin: 08/02/19 23:59 Dose: 1 mg Metoprolol Tartrate (Lopressor) 5 mg IVPUSH ONETIME ONE Stop: 08/02/19 21:45 Last Admin: 08/02/19 21:48 Dose: 5 mg Ondansetron HCl (Zofran) 4 mg IVPUSH ONETIME ONE Stop: 08/02/19 21:59 Last Admin: 08/02/19 22:02 Dose: 4 mg - Exam Quality Assessment: DVT Prophylaxis General: Moderate Distress, Lethargic Lungs: Normal Respiratory Effort, Rales. No: Decreased Breath Sounds, Crackles , Rhonchi, Rub Cardiovascular: Regular Rate, No Murmurs, Irregular Rhythm GI/Abdominal Exam: Soft, Non-Tender, No Organomegaly, No Distention Extremities: Non-Tender, Pedal Edema Sepsis Event Note - Evaluation Sepsis Screening Result: No Definite Risk - Focused Exam Vital Signs: Vital Signs Temp Pulse Pulse Resp BP BP Pulse Ox 08/03/19 09:00 82 19 144/90 H 99 08/03/19 08:24 142/77 H 08/03/19 08:00 97.4 F 83 18 142/77 H 95 08/03/19 00:33 108 H 21 H 165/96 H 95 08/03/19 00:27 115 H 23 H 188/115 H 91 L 08/03/19 00:22 96.4 F L 115 H 23 H 188/115 H 91 L 08/03/19 00:02 89 28 H 96 08/02/19 22:39 102 H 26 H 190/127 H 94 L 08/02/19 22:29 130 H 24 H 201/138 H 90 L 08/02/19 22:04 139 H 22 H 180/100 H 92 L 08/02/19 21:48 139 H 179/40 H Date Exam was Performed: 08/03/19 Time Exam was Performed: 09:47 - Problem List Review Problem List Initiated/Reviewed/Updated: Yes - My Orders Last 24 Hours: My Active Orders 08/03/19 09:27 Bumetanide [Bumex] 4 mg IVPUSH ONETIME ONE 08/03/19 09:30 Metoprolol Tartrate [Lopressor] 25 mg PO Q6H 08/03/19 09:46 Pelvis Non OB Comp [US] Routine - Plan Plan:: ASSESSMENT AND PLAN COMPLICATED URINARY TRACT INFECTION-suggestion of pyelonephritis with flank pain , no obvious inflammation identified on CT scan -IV ceftriaxone pending culture results -Blood and urine cultures pending CONGESTIVE HEART FAILURE-chest x-ray shows evidence of pulmonary edema, she does have a previous history of CHF. History of allergies to both MARKELL inhibitors and ARB's -Bumex 4 mg IV now -Echocardiogram to reassess left ventricular systolic and diastolic function ACUTE HYPOXIA-secondary to congestive heart failure and pulmonary edema -Supplemental oxygen as needed ATRIAL FIBRILLATION WITH RAPID VENTRICULAR RESPONSE-she is on long-term oral anticoagulation -Continue anticoagulation -Continue IV diltiazem -Start metoprolol 25 mg p.o. every 6 hours CHRONIC KIDNEY DISEASE STAGE IV -Closely monitor urine output and renal function with diuresis ADNEXAL LESION-noted on CT scan -Ultrasound for further evaluation MAINTENANCE ISSUES -DVT prophylaxis; Lovenox 30 mg subcu daily -GI prophylaxis; not indicated -Mason catheter; not indicated -Nutrition; 2 g sodium diet -Nicotine dependence; not required CODE STATUS-FULL CODE ADMISSION STATUS-patient will be admitted to inpatient status, expect at least a 2 night hospital stay for evaluation and management of problems as outlined above. At the time of this admission I do not reasonably expected evaluation and management of this problem will require more than a 96 hour hospital stay. DISPOSITION-anticipate discharge to home after the hospital stay. PRIMARY CARE PROVIDER-
[2019-08-03] MEDS ORDERED: Bumetanide 1 MG/4 ML MDV IVPUSH ONE (10:00)
[2019-08-03] MEDS ORDERED: oxyCODONE 5 MG Tab PO PRN (10:02)
[2019-08-03] MEDS: Metoprolol Tartrate 25 MG Tab PO SCH ×3 (10:47→21:11)
--- NOTE | 2019-08-03 14:40 | US ---
Pelvis Non OB Comp CLINICAL HISTORY: Adnexal lesion on CT FINDINGS: Uterus measures 6.4 x 4.4 x 2.0 cm. In the region stripe measures 3 mm. There is some fluid in the fundal endometrial space Right ovary is not visualized. Left ovary measures 3.8 x 2.4 x 2.2 cm. There are 2 anechoic cysts contiguously. One measures 2.0 x 2.0 x 2.3 cm. The other measures 1.5 x 0.9 x 1.3 cm. IMPRESSION: There are 2 simple cysts in the left ovary Small amount of fluid in the endometrial canal in the fundus
[2019-08-03] MEDS: cefTRIAXone 1 GM in Sodium Chloride 0.9% 50 ML IV SCH (21:11)
[2019-08-03] MEDS ORDERED: cefTRIAXone 1 GM Vial IM SCH (23:00)
[2019-08-04] MEDS: Metoprolol Tartrate 25 MG Tab PO SCH ×4 (03:58→21:43)
[2019-08-04] MEDS: Folic Acid 1 MG Tab PO SCH (09:55)
[2019-08-04] MEDS: Losartan 50 MG Tab PO SCH (09:56)
[2019-08-04] MEDS: Potassium Chloride 20 MEQ Tab.ER PO SCH (09:57)
[2019-08-04] MEDS: Clopidogrel 75 MG Tab PO SCH (09:57)
[2019-08-04] MEDS: atorvaSTATin 20 MG Tab PO SCH (09:57)
[2019-08-04] MEDS ORDERED: Bumetanide 1 MG/4 ML MDV IVPUSH ONE (10:00)
[2019-08-04] MEDS: Diltiazem IR 30 MG Tab PO SCH ×3 (11:55→23:40)
--- NOTE | 2019-08-04 12:48 | PCM.PN ---
- General Info Date of Service: 08/04/19 Subjective Update: Ms. An has felt improved over the last 24 hours, less shortness of breath, currently off of supplemental oxygen. Unfortunately remains in atrial fibrillation with rapid ventricular response. She has been started on metoprolol 25 mg every 6 hours. She denies any symptoms of chest pain or pressure or lightheadedness. Functional Status: Reports: Tolerating Diet, Urinating - Review of Systems General: Reports: Weakness. Denies: Fever, Chills Pulmonary: Reports: No Symptoms Cardiovascular: Reports: No Symptoms Gastrointestinal: Reports: No Symptoms - Patient Data Vitals - Most Recent: Last Vital Signs Temp 97.0 F 08/04/19 12:00 Pulse 133 H 08/04/19 12:00 Resp 22 H 08/04/19 12:00 BP 132/81 08/04/19 12:00 Pulse Ox 97 08/04/19 12:00 Weight - Most Recent: 132 lb I&O - Last 24 Hours: Intake & Output 08/03/19 08/04/19 08/04/19 22:59 06:59 14:59 Intake Total 287 Output Total 50 Balance 287 -50 Lab Results Last 24 Hours: Laboratory Results - last 24 hr 08/03/19 08/04/19 08/04/19 Range/Units 00:30 04:57 04:57 WBC 10.7 (4.5-11.0) K/uL RBC 4.12 (3.30-5.50) M/uL Hgb 11.1 L (12.0-15.0) g/dL Hct 36.8 (36.0-48.0) % MCV 89 (80-98) fL MCH 27 (27-31) pg MCHC 30 L (32-36) % Plt Count 282 (150-400) K/uL PT 23.5 H (9.5-12.0) sec INR 2.28 H (0.80-1.20) Sodium (140-148) mmol/L Potassium (3.6-5.2) mmol/L Chloride (100-108) mmol/L Carbon Dioxide (21-32) mmol/L Anion Gap (5.0-14.0) mmol/L BUN (7-18) mg/dL Creatinine (0.6-1.0) mg/dL Est Cr Clr Drug Dosing mL/min Estimated GFR (MDRD) (>60) Glucose (74-106) mg/dL Calcium (8.5-10.1) mg/dL COVID-19 PCR Negative (NEGATIVE) 08/04/19 Range/Units 04:57 WBC (4.5-11.0) K/uL RBC (3.30-5.50) M/uL Hgb (12.0-15.0) g/dL Hct (36.0-48.0) % MCV (80-98) fL MCH (27-31) pg MCHC (32-36) % Plt Count (150-400) K/uL PT (9.5-12.0) sec INR (0.80-1.20) Sodium 139 L (140-148) mmol/L Potassium 3.6 (3.6-5.2) mmol/L Chloride 108 (100-108) mmol/L Carbon Dioxide 25 (21-32) mmol/L Anion Gap 9.6 (5.0-14.0) mmol/L BUN 33 H (7-18) mg/dL Creatinine 2.9 H (0.6-1.0) mg/dL Est Cr Clr Drug Dosing 14.03 mL/min Estimated GFR (MDRD) 16 L (>60) Glucose 95 (74-106) mg/dL Calcium 8.6 (8.5-10.1) mg/dL COVID-19 PCR (NEGATIVE) Max Results Last 24 Hours: Microbiology 08/02/19 21:56 Urine Culture - Preliminary Urine, Quick Cath (In-Out) 08/02/19 22:45 Aerobic Blood Culture - Preliminary Blood - Arm, Right NO GROWTH AFTER 1 DAY Anaerobic Blood Culture - Preliminary NO GROWTH AFTER 1 DAY 08/02/19 22:35 Aerobic Blood Culture - Preliminary Blood - Arm, Left NO GROWTH AFTER 1 DAY Anaerobic Blood Culture - Preliminary NO GROWTH AFTER 1 DAY Med Orders - Current: Current Medications Acetaminophen (Tylenol) 650 mg PO Q4H PRN PRN Reason: Pain Atorvastatin Calcium (Lipitor) 20 mg PO DAILY [facility] Last Admin: 08/04/19 09:57 Dose: 20 mg Clopidogrel Bisulfate (Plavix) 75 mg PO DAILY [facility] Last Admin: 08/04/19 09:57 Dose: 75 mg Diltiazem HCl (Cardizem) 30 mg PO Q6H [facility] Last Admin: 08/04/19 11:55 Dose: 30 mg Diphenhydramine HCl (Benadryl) 25 mg PO Q6H PRN PRN Reason: Itching Folic Acid (Folic Acid) 0.5 mg PO DAILY [facility] Last Admin: 08/04/19 09:55 Dose: 0.5 mg Ceftriaxone Sodium 1 gm/ (Sodium Chloride) 50 mls @ 100 mls/hr IV Q24H [facility] Last Admin: 08/03/19 21:11 Dose: 100 mls/hr Losartan Potassium (Cozaar) 100 mg PO DAILY [facility] Last Admin: 08/04/19 09:56 Dose: 100 mg Metoprolol Tartrate (Lopressor) 25 mg PO Q6H [facility] Last Admin: 08/04/19 09:56 Dose: 25 mg Ondansetron HCl (Zofran) 4 mg IVPUSH Q6H PRN PRN Reason: Nausea/Vomiting Oxycodone HCl (Oxycodone) 5 mg PO Q4H PRN PRN Reason: Pain Potassium Chloride (Klor-Con M20) 20 meq PO DAILY [facility] Last Admin: 08/04/19 09:57 Dose: 20 meq Potassium Chloride (Klor-Con M20) 40 meq PO ONETIME ONE Stop: 08/04/19 12:45 Warfarin Sodium (Coumadin) 5 mg PO DAILY@1300 [facility] Discontinued Medications Bumetanide (Bumex) 4 mg IVPUSH ONETIME ONE Stop: 08/03/19 10:01 Last Admin: 08/03/19 10:46 Dose: 4 mg Bumetanide (Bumex) 2 mg IVPUSH ONETIME ONE Stop: 08/04/19 10:01 Last Admin: 08/04/19 09:59 Dose: 2 mg Diltiazem HCl (Diltiazem) 15 mg IVPUSH ONETIME ONE Stop: 08/02/19 23:47 Last Admin: 08/02/19 23:59 Dose: 15 mg Diphenhydramine HCl (Benadryl) 25 mg IVPUSH Q6H PRN PRN Reason: Itching Fentanyl (Sublimaze) 50 mcg IVPUSH ONETIME ONE Stop: 08/02/19 21:07 Last Admin: 08/02/19 21:27 Dose: 50 mcg Furosemide (Lasix) 40 mg IVPUSH ONETIME ONE Stop: 08/02/19 22:50 Last Admin: 08/02/19 22:54 Dose: 40 mg Hydromorphone HCl (Dilaudid [employer] Administrator 15 Mg In Ns 30 Ml) 15 mg IV ASDIRECTED [facility]; Protocol Sodium Chloride (Normal Saline) 1,000 mls @ 999 mls/hr IV ONETIME ONE Stop: 08/02/19 22:06 Last Admin: 08/02/19 21:27 Dose: 999 mls/hr Ceftriaxone Sodium 1 gm/ (Sodium Chloride) 50 mls @ 100 mls/hr IV ONETIME ONE Stop: 08/02/19 23:03 Last Admin: 08/02/19 22:50 Dose: 100 mls/hr Diltiazem HCl 100 mg/ Sodium (Chloride) 100 mls @ 5 mls/hr IV TITRATE [facility]; Protocol Last Titration: 08/03/19 11:46 Dose: 0 mg/hr, 0 mls/hr Lorazepam (Ativan) 1 mg IVPUSH ONETIME ONE Stop: 08/02/19 23:48 Last Admin: 08/02/19 23:59 Dose: 1 mg Metoprolol Tartrate (Lopressor) 5 mg IVPUSH ONETIME ONE Stop: 08/02/19 21:45 Last Admin: 08/02/19 21:48 Dose: 5 mg Naloxone HCl (Narcan) 0.04 mg IVPUSH Q3M PRN PRN Reason: Respiratory Depression Ondansetron HCl (Zofran) 4 mg IVPUSH ONETIME ONE Stop: 08/02/19 21:59 Last Admin: 08/02/19 22:02 Dose: 4 mg - Exam Quality Assessment: DVT Prophylaxis General: Alert, Oriented, Cooperative, No Acute Distress Lungs: Clear to Auscultation, Normal Respiratory Effort, Decreased Breath Sounds Cardiovascular: No Murmurs, Irregular Rhythm, Tachycardia GI/Abdominal Exam: Soft, Non-Tender, No Organomegaly, No Distention Extremities: Non-Tender, No Pedal Edema Sepsis Event Note - Evaluation Sepsis Screening Result: No Definite Risk - Focused Exam Vital Signs: Vital Signs Temp Pulse Pulse Resp BP BP Pulse Ox 08/04/19 12:00 97.0 F 133 H 22 H 132/81 97 08/04/19 10:00 128 H 21 H 148/115 H 97 08/04/19 09:56 130 H 151/113 H 08/04/19 08:00 96.6 F L 129 H 28 H 140/96 H 92 L 08/04/19 06:00 100 18 152/98 H 91 L 08/04/19 05:00 111 H 21 H 144/98 H 92 L 08/04/19 04:00 95.9 F L 121 H 18 137/98 H 91 L 08/04/19 03:58 120 H 141/91 H 08/04/19 03:00 112 H 19 141/91 H 93 L 08/04/19 02:00 99 18 148/96 H 93 L 08/04/19 01:00 115 H 22 H 132/81 93 L Date Exam was Performed: 08/04/19 Time Exam was Performed: 12:44 - Problem List Review Problem List Initiated/Reviewed/Updated: Yes - My Orders Last 24 Hours: My Active Orders 08/04/19 12:00 Diltiazem IR [Cardizem] 30 mg PO Q6H 08/04/19 12:44 Potassium Chloride [Klor-Con M20] 40 meq PO ONETIME ONE 08/04/19 13:00 Warfarin [Coumadin] 5 mg PO DAILY@1300 08/05/19 05:00 BASIC METABOLIC PANEL,BMP [CHEM] Timed - Plan Plan:: ASSESSMENT AND PLAN COMPLICATED URINARY TRACT INFECTION-suggestion of pyelonephritis with flank pain , no obvious inflammation identified on CT scan. Urine culture growing gram- negative rods, final ID and sensitivities are pending. Blood cultures remain negative so far. -IV ceftriaxone pending culture results -Blood and urine cultures pending CONGESTIVE HEART FAILURE-short of breath with diuresis yesterday, now off of supplemental oxygen -Echocardiogram to reassess left ventricular systolic and diastolic function ACUTE HYPOXIA-resolved -Supplemental oxygen as needed ATRIAL FIBRILLATION WITH RAPID VENTRICULAR RESPONSE-she is on long-term oral anticoagulation. Rate remains elevated despite use of metoprolol 25 mg every 6 hours -Continue anticoagulation -metoprolol 25 mg p.o. every 6 hours -Start diltiazem 30 mg every 6 hours CHRONIC KIDNEY DISEASE STAGE IV-renal function slightly worse following diuresis yesterday -Closely monitor urine output and renal function with diuresis ADNEXAL LESION-noted on CT scan -Ultrasound for further evaluation MAINTENANCE ISSUES -DVT prophylaxis; Lovenox 30 mg subcu daily -GI prophylaxis; not indicated -Mason catheter; not indicated -Nutrition; 2 g sodium diet -Nicotine dependence; not required CODE STATUS-FULL CODE ADMISSION STATUS-patient will be admitted to inpatient status, expect at least a 2 night hospital stay for evaluation and management of problems as outlined above. At the time of this admission I do not reasonably expected evaluation and management of this problem will require more than a 96 hour hospital stay. DISPOSITION-anticipate discharge to home after the hospital stay. PRIMARY CARE PROVIDER-
[2019-08-04] MEDS ORDERED: Warfarin 5 MG Tab PO SCH (13:00)
[2019-08-04] MEDS ORDERED: Potassium Chloride 20 MEQ Tab.ER PO ONE (13:00)
[2019-08-04] MEDS: cefTRIAXone 1 GM in Sodium Chloride 0.9% 50 ML IV SCH (21:43)
[2019-08-05] MEDS: Metoprolol Tartrate 25 MG Tab PO SCH (04:43)
[2019-08-05] MEDS: Diltiazem IR 30 MG Tab PO SCH (05:36)
[2019-08-05] MEDS: atorvaSTATin 20 MG Tab PO SCH (08:10)
[2019-08-05] MEDS: Losartan 50 MG Tab PO SCH (08:11)
[2019-08-05] MEDS: Folic Acid 1 MG Tab PO SCH (08:12)
[2019-08-05] MEDS: Potassium Chloride 20 MEQ Tab.ER PO SCH (08:12)
[2019-08-05] MEDS: Clopidogrel 75 MG Tab PO SCH (08:12)
[2019-08-05] MEDS: Metoprolol Succinate 50 MG Tab.ER PO SCH (08:51)
[2019-08-05] MEDS: Diltiazem 180 MG Cap.CD PO SCH (08:51)
[2019-08-05] MEDS ORDERED: Bumetanide 1 MG Tab PO ONE (09:45)
[2019-08-05] MEDS ORDERED: Bumetanide 1 MG/4 ML MDV IVPUSH ONE (10:00)
[2019-08-05] MEDS ORDERED: Warfarin 2.5 MG Tab PO SCH (13:00)
--- NOTE | 2019-08-05 13:05 | PCM.PN ---
- General Info Date of Service: 08/05/19 Subjective Update: Ms. An has been stable since yesterday, remains in atrial fibrillation but there has been a good improvement in overall heart rate. She remains mildly tachycardic, but improved from yesterday. Shortness of breath has resolved and she is off of supplemental oxygen. Vital signs have been stable and she has remained afebrile. Functional Status: Reports: Tolerating Diet, Ambulating, Urinating - Review of Systems General: Reports: Weakness. Denies: Fever, Chills Pulmonary: Reports: No Symptoms Cardiovascular: Reports: No Symptoms Gastrointestinal: Reports: No Symptoms - Patient Data Vitals - Most Recent: Last Vital Signs Temp 97.6 F 08/05/19 08:00 Pulse 103 H 08/05/19 10:00 Resp 19 08/05/19 10:00 BP 127/73 08/05/19 10:00 Pulse Ox 97 08/05/19 10:00 Weight - Most Recent: 132 lb I&O - Last 24 Hours: Intake & Output 08/04/19 08/05/19 08/05/19 22:59 06:59 14:59 Intake Total 240 Output Total 275 Balance -35 Lab Results Last 24 Hours: Laboratory Results - last 24 hr 08/05/19 08/05/19 Range/Units 04:10 04:10 PT 21.0 H (9.5-12.0) sec INR 2.02 H (0.80-1.20) Sodium 141 (140-148) mmol/L Potassium 3.7 (3.6-5.2) mmol/L Chloride 108 (100-108) mmol/L Carbon Dioxide 24 (21-32) mmol/L Anion Gap 8.9 (5.0-14.0) mmol/L BUN 37 H (7-18) mg/dL Creatinine 2.7 H (0.6-1.0) mg/dL Est Cr Clr Drug Dosing 15.07 mL/min Estimated GFR (MDRD) 17 L (>60) Glucose 97 (74-106) mg/dL Calcium 8.4 L (8.5-10.1) mg/dL Max Results Last 24 Hours: Microbiology 08/02/19 21:56 Urine Culture - Final Urine, Quick Cath (In-Out) Escherichia Coli 08/02/19 22:35 Aerobic Blood Culture - Preliminary Blood - Arm, Left NO GROWTH AFTER 2 DAYS Anaerobic Blood Culture - Preliminary NO GROWTH AFTER 2 DAYS 08/02/19 22:45 Aerobic Blood Culture - Preliminary Blood - Arm, Right NO GROWTH AFTER 2 DAYS Anaerobic Blood Culture - Preliminary NO GROWTH AFTER 2 DAYS Med Orders - Current: Current Medications Acetaminophen (Tylenol) 650 mg PO Q4H PRN PRN Reason: Pain Atorvastatin Calcium (Lipitor) 20 mg PO DAILY [facility] Last Admin: 08/05/19 08:10 Dose: 20 mg Cephalexin (Keflex) 500 mg PO Q8H [facility] Clopidogrel Bisulfate (Plavix) 75 mg PO DAILY [facility] Last Admin: 08/05/19 08:12 Dose: 75 mg Diltiazem HCl (Cardizem Cd) 180 mg PO DAILY [facility] Last Admin: 08/05/19 08:51 Dose: 180 mg Diphenhydramine HCl (Benadryl) 25 mg PO Q6H PRN PRN Reason: Itching Folic Acid (Folic Acid) 0.5 mg PO DAILY [facility] Last Admin: 08/05/19 08:12 Dose: 0.5 mg Lactobacillus Rhamnosus (Culturelle) 1 cap PO BID [facility] Losartan Potassium (Cozaar) 100 mg PO DAILY [facility] Last Admin: 08/05/19 08:11 Dose: 100 mg Metoprolol Succinate (Toprol Xl) 100 mg PO DAILY [facility] Last Admin: 08/05/19 08:51 Dose: 100 mg Ondansetron HCl (Zofran) 4 mg IVPUSH Q6H PRN PRN Reason: Nausea/Vomiting Oxycodone HCl (Oxycodone) 5 mg PO Q4H PRN PRN Reason: Pain Potassium Chloride (Klor-Con M20) 20 meq PO DAILY [facility] Last Admin: 08/05/19 08:12 Dose: 20 meq Warfarin Sodium (Coumadin) 5 mg PO DAILY@1300 [facility] Discontinued Medications Bumetanide (Bumex) 4 mg IVPUSH ONETIME ONE Stop: 08/03/19 10:01 Last Admin: 08/03/19 10:46 Dose: 4 mg Bumetanide (Bumex) 2 mg IVPUSH ONETIME ONE Stop: 08/04/19 10:01 Last Admin: 08/04/19 09:59 Dose: 2 mg Bumetanide (Bumex) 4 mg PO ONETIME ONE Stop: 08/05/19 09:46 Last Admin: 08/05/19 10:27 Dose: 4 mg Diltiazem HCl (Diltiazem) 15 mg IVPUSH ONETIME ONE Stop: 08/02/19 23:47 Last Admin: 08/02/19 23:59 Dose: 15 mg Diltiazem HCl (Cardizem) 30 mg PO Q6H [facility] Last Admin: 08/05/19 05:36 Dose: 30 mg Diphenhydramine HCl (Benadryl) 25 mg IVPUSH Q6H PRN PRN Reason: Itching Fentanyl (Sublimaze) 50 mcg IVPUSH ONETIME ONE Stop: 08/02/19 21:07 Last Admin: 08/02/19 21:27 Dose: 50 mcg Furosemide (Lasix) 40 mg IVPUSH ONETIME ONE Stop: 08/02/19 22:50 Last Admin: 08/02/19 22:54 Dose: 40 mg Hydromorphone HCl (Dilaudid [employer]atering Staff Member 15 Mg In Ns 30 Ml) 15 mg IV ASDIRECTED [facility]; Protocol Sodium Chloride (Normal Saline) 1,000 mls @ 999 mls/hr IV ONETIME ONE Stop: 08/02/19 22:06 Last Admin: 08/02/19 21:27 Dose: 999 mls/hr Ceftriaxone Sodium 1 gm/ (Sodium Chloride) 50 mls @ 100 mls/hr IV ONETIME ONE Stop: 08/02/19 23:03 Last Admin: 08/02/19 22:50 Dose: 100 mls/hr Diltiazem HCl 100 mg/ Sodium (Chloride) 100 mls @ 5 mls/hr IV TITRATE [facility]; Protocol Last Titration: 08/03/19 11:46 Dose: 0 mg/hr, 0 mls/hr Ceftriaxone Sodium 1 gm/ (Sodium Chloride) 50 mls @ 100 mls/hr IV Q24H [facility] Last Admin: 08/04/19 21:43 Dose: 100 mls/hr Lorazepam (Ativan) 1 mg IVPUSH ONETIME ONE Stop: 08/02/19 23:48 Last Admin: 08/02/19 23:59 Dose: 1 mg Metoprolol Tartrate (Lopressor) 5 mg IVPUSH ONETIME ONE Stop: 08/02/19 21:45 Last Admin: 08/02/19 21:48 Dose: 5 mg Metoprolol Tartrate (Lopressor) 25 mg PO Q6H [facility] Last Admin: 08/05/19 04:43 Dose: 25 mg Naloxone HCl (Narcan) 0.04 mg IVPUSH Q3M PRN PRN Reason: Respiratory Depression Ondansetron HCl (Zofran) 4 mg IVPUSH ONETIME ONE Stop: 08/02/19 21:59 Last Admin: 08/02/19 22:02 Dose: 4 mg Potassium Chloride (Klor-Con M20) 40 meq PO ONETIME ONE Stop: 08/04/19 13:01 Last Admin: 08/04/19 13:51 Dose: 40 meq Warfarin Sodium (Coumadin) 5 mg PO DAILY@1300 [facility] Last Admin: 08/04/19 13:50 Dose: 5 mg - Exam Quality Assessment: DVT Prophylaxis General: Alert, Oriented, Cooperative, No Acute Distress Lungs: Clear to Auscultation, Normal Respiratory Effort, Decreased Breath Sounds Cardiovascular: No Murmurs, Irregular Rhythm, Tachycardia GI/Abdominal Exam: Soft, Non-Tender, No Organomegaly, No Distention Extremities: Non-Tender, No Pedal Edema Sepsis Event Note - Evaluation Sepsis Screening Result: No Definite Risk - Focused Exam Vital Signs: Vital Signs Temp Pulse Pulse Resp BP BP Pulse Ox 08/05/19 10:00 103 H 19 127/73 97 08/05/19 08:51 112 H 138/76 08/05/19 08:11 138/76 08/05/19 08:00 97.6 F 106 H 12 138/76 95 08/05/19 06:00 17 140/86 94 L 08/05/19 04:43 115 H 131/90 08/05/19 04:00 97 F 19 131/90 94 L 08/05/19 02:00 18 128/81 95 Date Exam was Performed: 08/05/19 Time Exam was Performed: 13:00 - Problem List Review Problem List Initiated/Reviewed/Updated: Yes - My Orders Last 24 Hours: My Active Orders 08/05/19 09:00 Diltiazem [Cardizem CD] 180 mg PO DAILY Metoprolol Succinate [Toprol XL] 100 mg PO DAILY 08/05/19 12:51 Patient Status [ADT] Routine 08/05/19 13:00 Lactobacillus Rhamnosus GG [Culturelle] 1 cap PO BID Warfarin [Coumadin] 5 mg PO DAILY@1300 cephALEXin [Keflex] 500 mg PO Q8H 08/06/19 05:00 BASIC METABOLIC PANEL,BMP [CHEM] Timed INR,PT,PROTHROMBIN TIME [COAG] Timed - Plan Plan:: ASSESSMENT AND PLAN COMPLICATED URINARY TRACT INFECTION-suggestion of pyelonephritis with flank pain , no obvious inflammation identified on CT scan. Urine culture growing and sensitive E. coli -Cephalexin 500 mg p.o. every 8 hours CONGESTIVE HEART FAILURE-stable, echocardiogram obtained yesterday, formal report pending -Bumex 4 mg p.o. today ACUTE HYPOXIA-resolved -Supplemental oxygen as needed ATRIAL FIBRILLATION WITH RAPID VENTRICULAR RESPONSE-rate control has improved with use of diltiazem and metoprolol, will transition to long-acting forms of medication -Continue anticoagulation -Metoprolol XL 100 mg p.o. daily -Diltiazem CD 180 mg daily CHRONIC KIDNEY DISEASE STAGE IV-no function remains stable -Closely monitor urine output and renal function with diuresis ADNEXAL LESION-simple cyst noted on ultrasound -No further evaluation warranted MAINTENANCE ISSUES -DVT prophylaxis; stable with current anticoagulation -GI prophylaxis; not indicated -Mason catheter; not indicated -Nutrition; 2 g sodium diet -Nicotine dependence; not required CODE STATUS-FULL CODE ADMISSION STATUS-patient will be admitted to inpatient status, expect at least a 2 night hospital stay for evaluation and management of problems as outlined above. At the time of this admission I do not reasonably expected evaluation and management of this problem will require more than a 96 hour hospital stay. DISPOSITION-anticipate discharge to home after the hospital stay. PRIMARY CARE PROVIDER-
[2019-08-05] MEDS: Lactobacillus Rhamnosus GG (Probiotic) Cap PO SCH ×2 (13:40→21:03)
[2019-08-05] MEDS ORDERED: Diltiazem IR 30 MG Tab PO ONE ×2 (16:14→22:33)
[2019-08-05] MEDS ORDERED: Bisacodyl 10 MG Supp RECTAL ONE (16:31)
[2019-08-05] MEDS ORDERED: Polyethylene Glycol 3350 Powder 17 GM Packet PO PRN (16:32)
[2019-08-05] MEDS ORDERED: Diltiazem IR 30 MG Tab ONE (19:06)
[2019-08-05] MEDS: Cephalexin 250 MG Cap PO SCH (21:04)
[2019-08-05] MEDS ORDERED: Cephalexin 250 MG Cap PO SCH ×2 (22:00)
--- NOTE | 2019-08-05 23:21 | PCM.SN.2 ---
- Free Text/Narrative Note: time : [address] [place] [address]; concerns of heart rate from 120's to 130' s Mrs. An is asymptomatic with increased heart rate. last dose of Diltazem 30 mg at 1999 A: Afib with heart rate 12--130 P. Monitor for effectiveness of recent Diltazem, continue telemetry. call in 2 hours to report heart rate or sooner if has any concerns.
[2019-08-06] MEDS: Cephalexin 250 MG Cap PO SCH ×3 (06:09→21:00)
[2019-08-06] MEDS ORDERED: Potassium Chloride 20 MEQ Tab.ER PO ONE ×3 (08:20→17:00)
[2019-08-06] MEDS: atorvaSTATin 20 MG Tab PO SCH (09:52)
[2019-08-06] MEDS: Folic Acid 1 MG Tab PO SCH (09:52)
[2019-08-06] MEDS: Metoprolol Succinate 50 MG Tab.ER PO SCH (09:53)
[2019-08-06] MEDS: Clopidogrel 75 MG Tab PO SCH (09:54)
[2019-08-06] MEDS: Potassium Chloride 20 MEQ Tab.ER PO SCH (09:55)
[2019-08-06] MEDS: Diltiazem 180 MG Cap.CD PO SCH (09:56)
[2019-08-06] MEDS: Losartan 50 MG Tab PO SCH (09:56)
--- NOTE | 2019-08-06 10:16 | PCM.PN ---
- General Info Date of Service: 08/06/19 Subjective Update: Ms. An has been stable, heart rate finally under better control on current therapy with metoprolol and diltiazem. She has been afebrile, abdominal and flank pain have resolved. - Review of Systems General: Reports: Weakness. Denies: Fever, Chills Pulmonary: Reports: No Symptoms Cardiovascular: Reports: No Symptoms Gastrointestinal: Reports: No Symptoms - Patient Data Vitals - Most Recent: Last Vital Signs Temp 96.8 F L 08/06/19 07:12 Pulse 86 08/06/19 09:53 Resp 16 08/06/19 07:12 BP 115/58 L 08/06/19 09:56 Pulse Ox 99 08/06/19 07:12 Weight - Most Recent: 132 lb I&O - Last 24 Hours: Intake & Output 08/05/19 08/06/19 08/06/19 22:59 06:59 14:59 Output Total 100 200 Balance -100 -200 Lab Results Last 24 Hours: Laboratory Results - last 24 hr 08/06/19 08/06/19 Range/Units 04:10 04:10 PT 28.1 H (9.5-12.0) sec INR 2.76 H (0.80-1.20) Sodium 141 (140-148) mmol/L Potassium 3.4 L (3.6-5.2) mmol/L Chloride 103 (100-108) mmol/L Carbon Dioxide 27 (21-32) mmol/L Anion Gap 14.4 H (5.0-14.0) mmol/L BUN 44 H (7-18) mg/dL Creatinine 2.8 H (0.6-1.0) mg/dL Est Cr Clr Drug Dosing 14.53 mL/min Estimated GFR (MDRD) 16 L (>60) Glucose 107 H (74-106) mg/dL Calcium 8.9 (8.5-10.1) mg/dL Max Results Last 24 Hours: Microbiology 08/02/19 22:35 Aerobic Blood Culture - Preliminary Blood - Arm, Left NO GROWTH AFTER 3 DAYS Anaerobic Blood Culture - Preliminary NO GROWTH AFTER 3 DAYS 08/02/19 22:45 Aerobic Blood Culture - Preliminary Blood - Arm, Right NO GROWTH AFTER 3 DAYS Anaerobic Blood Culture - Preliminary NO GROWTH AFTER 3 DAYS 08/02/19 21:56 Urine Culture - Final Urine, Quick Cath (In-Out) Escherichia Coli Med Orders - Current: Current Medications Acetaminophen (Tylenol) 650 mg PO Q4H PRN PRN Reason: Pain Atorvastatin Calcium (Lipitor) 20 mg PO DAILY [facility] Last Admin: 08/06/19 09:52 Dose: 20 mg Cephalexin (Keflex) 500 mg PO Q8H [facility] Last Admin: 08/06/19 06:09 Dose: 500 mg Clopidogrel Bisulfate (Plavix) 75 mg PO DAILY [facility] Last Admin: 08/06/19 09:54 Dose: 75 mg Diltiazem HCl (Cardizem Cd) 180 mg PO DAILY [facility] Last Admin: 08/06/19 09:56 Dose: 180 mg Diphenhydramine HCl (Benadryl) 25 mg PO Q6H PRN PRN Reason: Itching Folic Acid (Folic Acid) 0.5 mg PO DAILY [facility] Last Admin: 08/06/19 09:52 Dose: 0.5 mg Lactobacillus Rhamnosus (Culturelle) 1 cap PO BID [facility] Last Admin: 08/05/19 21:03 Dose: 1 cap Losartan Potassium (Cozaar) 100 mg PO DAILY [facility] Last Admin: 08/06/19 09:56 Dose: 100 mg Metoprolol Succinate (Toprol Xl) 100 mg PO DAILY [facility] Last Admin: 08/06/19 09:53 Dose: 100 mg Ondansetron HCl (Zofran) 4 mg IVPUSH Q6H PRN PRN Reason: Nausea/Vomiting Oxycodone HCl (Oxycodone) 5 mg PO Q4H PRN PRN Reason: Pain Polyethylene Glycol (Miralax) 17 gm PO BID PRN PRN Reason: Constipation Potassium Chloride (Klor-Con M20) 20 meq PO DAILY [facility] Last Admin: 08/06/19 09:55 Dose: 20 meq Potassium Chloride (Klor-Con M20) 40 meq PO ONETIME ONE Stop: 08/06/19 17:01 Senna/Docusate Sodium (Senna Plus) 1 tab PO BID [facility] Last Admin: 08/06/19 09:54 Dose: Not Given Warfarin Sodium (Coumadin) 2.5 mg PO DAILY@1300 [facility] Discontinued Medications Bisacodyl (Dulcolax) 10 mg RECTAL ONETIME ONE Stop: 08/05/19 16:32 Last Admin: 08/05/19 19:03 Dose: Not Given Bumetanide (Bumex) 4 mg IVPUSH ONETIME ONE Stop: 08/03/19 10:01 Last Admin: 08/03/19 10:46 Dose: 4 mg Bumetanide (Bumex) 2 mg IVPUSH ONETIME ONE Stop: 08/04/19 10:01 Last Admin: 08/04/19 09:59 Dose: 2 mg Bumetanide (Bumex) 4 mg PO ONETIME ONE Stop: 08/05/19 09:46 Last Admin: 08/05/19 10:27 Dose: 4 mg Cephalexin (Keflex) 500 mg PO Q8H [facility] Cephalexin (Keflex) 250 mg PO Q8H [facility] Diltiazem HCl (Diltiazem) 15 mg IVPUSH ONETIME ONE Stop: 08/02/19 23:47 Last Admin: 08/02/19 23:59 Dose: 15 mg Diltiazem HCl (Cardizem) 30 mg PO Q6H [facility] Last Admin: 08/05/19 05:36 Dose: 30 mg Diltiazem HCl (Cardizem) 30 mg PO ONETIME ONE Stop: 08/05/19 16:15 Last Admin: 08/05/19 19:07 Dose: 30 mg Diltiazem HCl (Cardizem) Confirm Administered Dose 30 mg .ROUTE .STK-MED ONE Stop: 08/05/19 19:07 Last Admin: 08/05/19 20:08 Dose: Not Given Diltiazem HCl (Cardizem) 30 mg PO ONETIME ONE Stop: 08/05/19 22:34 Last Admin: 08/05/19 22:46 Dose: 30 mg Diphenhydramine HCl (Benadryl) 25 mg IVPUSH Q6H PRN PRN Reason: Itching Fentanyl (Sublimaze) 50 mcg IVPUSH ONETIME ONE Stop: 08/02/19 21:07 Last Admin: 08/02/19 21:27 Dose: 50 mcg Furosemide (Lasix) 40 mg IVPUSH ONETIME ONE Stop: 08/02/19 22:50 Last Admin: 08/02/19 22:54 Dose: 40 mg Hydromorphone HCl (Dilaudid Crochet Machine Operator 15 Mg In Ns 30 Ml) 15 mg IV ASDIRECTED [facility]; Protocol Sodium Chloride (Normal Saline) 1,000 mls @ 999 mls/hr IV ONETIME ONE Stop: 08/02/19 22:06 Last Admin: 08/02/19 21:27 Dose: 999 mls/hr Ceftriaxone Sodium 1 gm/ (Sodium Chloride) 50 mls @ 100 mls/hr IV ONETIME ONE Stop: 08/02/19 23:03 Last Admin: 08/02/19 22:50 Dose: 100 mls/hr Diltiazem HCl 100 mg/ Sodium (Chloride) 100 mls @ 5 mls/hr IV TITRATE [facility]; Protocol Last Titration: 08/03/19 11:46 Dose: 0 mg/hr, 0 mls/hr Ceftriaxone Sodium 1 gm/ (Sodium Chloride) 50 mls @ 100 mls/hr IV Q24H [facility] Last Admin: 08/04/19 21:43 Dose: 100 mls/hr Lorazepam (Ativan) 1 mg IVPUSH ONETIME ONE Stop: 08/02/19 23:48 Last Admin: 08/02/19 23:59 Dose: 1 mg Metoprolol Tartrate (Lopressor) 5 mg IVPUSH ONETIME ONE Stop: 08/02/19 21:45 Last Admin: 08/02/19 21:48 Dose: 5 mg Metoprolol Tartrate (Lopressor) 25 mg PO Q6H [facility] Last Admin: 08/05/19 04:43 Dose: 25 mg Naloxone HCl (Narcan) 0.04 mg IVPUSH Q3M PRN PRN Reason: Respiratory Depression Ondansetron HCl (Zofran) 4 mg IVPUSH ONETIME ONE Stop: 08/02/19 21:59 Last Admin: 08/02/19 22:02 Dose: 4 mg Potassium Chloride (Klor-Con M20) 40 meq PO ONETIME ONE Stop: 08/04/19 13:01 Last Admin: 08/04/19 13:51 Dose: 40 meq Potassium Chloride (Klor-Con M20) 40 meq PO ONETIME ONE Stop: 08/06/19 09:01 Last Admin: 08/06/19 09:55 Dose: 40 meq Potassium Chloride (Klor-Con M20) 40 meq PO ONETIME ONE Stop: 08/06/19 08:21 Warfarin Sodium (Coumadin) 5 mg PO DAILY@1300 [facility] Last Admin: 08/04/19 13:50 Dose: 5 mg Warfarin Sodium (Coumadin) 5 mg PO DAILY@1300 [facility] Last Admin: 08/05/19 13:39 Dose: 5 mg - Exam Quality Assessment: DVT Prophylaxis General: Alert, Oriented, Cooperative, No Acute Distress Lungs: Clear to Auscultation, Normal Respiratory Effort Cardiovascular: Regular Rate, No Murmurs, Irregular Rhythm GI/Abdominal Exam: Soft, Non-Tender, No Organomegaly, No Distention Extremities: Non-Tender, No Pedal Edema Sepsis Event Note - Evaluation Sepsis Screening Result: No Definite Risk - Focused Exam Vital Signs: Vital Signs Temp Pulse Pulse Resp BP BP Pulse Ox 08/06/19 09:56 115/58 L 08/06/19 09:53 86 115/58 L 08/06/19 07:12 96.8 F L 72 16 116/72 99 08/06/19 02:16 96.8 F L 115 H 16 116/73 99 08/05/19 22:28 96.5 F L 127 H 18 143/87 H 98 Date Exam was Performed: 08/06/19 Time Exam was Performed: 10:13 - Problem List Review Problem List Initiated/Reviewed/Updated: Yes - My Orders Last 24 Hours: My Active Orders 08/05/19 12:51 Patient Status [ADT] Routine 08/05/19 13:00 Lactobacillus Rhamnosus GG [Culturelle] 1 cap PO BID 08/05/19 16:32 polyethylene glycoL 3350 [MiraLAX] 17 gm PO BID PRN 08/05/19 16:45 Docusate Sodium/Sennosides [Senna Plus] 1 tab PO BID 08/05/19 22:00 cephALEXin [Keflex] 500 mg PO Q8H 08/06/19 13:00 Warfarin [Coumadin] 2.5 mg PO DAILY@1300 08/06/19 17:00 Potassium Chloride [Klor-Con M20] 40 meq PO ONETIME ONE 08/07/19 05:00 BASIC METABOLIC PANEL,BMP [CHEM] Timed INR,PT,PROTHROMBIN TIME [COAG] Timed - Plan Plan:: ASSESSMENT AND PLAN COMPLICATED URINARY TRACT INFECTION-temps have resolved and she has remained afebrile -Cephalexin 500 mg p.o. every 8 hours CONGESTIVE HEART FAILURE-stable, echocardiogram obtained 2 days ago, formal report pending. Seems to be well compensated at this time with no significant respiratory compromise. ACUTE HYPOXIA-resolved -Supplemental oxygen as needed ATRIAL FIBRILLATION WITH RAPID VENTRICULAR RESPONSE-rate control has improved with use of diltiazem and metoprolol, will transition to long-acting forms of medication -Continue anticoagulation -Metoprolol XL 100 mg p.o. daily -Diltiazem CD 180 mg daily CHRONIC KIDNEY DISEASE STAGE IV-renal function remains elevated but stable stable -Closely monitor urine output and renal function with diuresis ADNEXAL LESION-simple cyst noted on ultrasound -No further evaluation warranted MAINTENANCE ISSUES -DVT prophylaxis; stable with current anticoagulation -GI prophylaxis; not indicated -Mason catheter; not indicated -Nutrition; 2 g sodium diet -Nicotine dependence; not required CODE STATUS-FULL CODE ADMISSION STATUS-patient will be admitted to inpatient status, expect at least a 2 night hospital stay for evaluation and management of problems as outlined above. At the time of this admission I do not reasonably expected evaluation and management of this problem will require more than a 96 hour hospital stay. DISPOSITION-anticipate discharge to home after the hospital stay. PRIMARY CARE PROVIDER-
[2019-08-06] MEDS: Lactobacillus Rhamnosus GG (Probiotic) Cap PO SCH ×2 (10:58→21:00)
[2019-08-06] MEDS ORDERED: Warfarin 2.5 MG Tab PO SCH (13:00)
[2019-08-06] MEDS: Melatonin 3 MG Tab PO SCH (21:01)
[2019-08-07] MEDS: Cephalexin 250 MG Cap PO SCH ×3 (06:02→21:31)
[2019-08-07] MEDS: Potassium Chloride 20 MEQ Tab.ER PO SCH (08:30)
[2019-08-07] MEDS: Metoprolol Succinate 50 MG Tab.ER PO SCH (08:30)
[2019-08-07] MEDS: Diltiazem 180 MG Cap.CD PO SCH (08:31)
[2019-08-07] MEDS: Folic Acid 1 MG Tab PO SCH (08:32)
[2019-08-07] MEDS: Losartan 50 MG Tab PO SCH (08:32)
[2019-08-07] MEDS: atorvaSTATin 20 MG Tab PO SCH (08:33)
[2019-08-07] MEDS: Lactobacillus Rhamnosus GG (Probiotic) Cap PO SCH ×2 (08:33→21:30)
[2019-08-07] MEDS: Clopidogrel 75 MG Tab PO SCH (08:34)
--- NOTE | 2019-08-07 09:37 | PCM.PN ---
- General Info Date of Service: 08/07/19 Subjective Update: Ms. An remains pleasantly confused, currently denies discomfort. Abdominal and flank pain is totally resolved. Heart rate under good control on current therapy with metoprolol and diltiazem. Functional Status: Reports: Tolerating Diet, Ambulating, Urinating - Review of Systems General: Reports: Weakness. Denies: Fever, Chills Pulmonary: Reports: No Symptoms Cardiovascular: Reports: No Symptoms Gastrointestinal: Reports: No Symptoms - Patient Data Vitals - Most Recent: Last Vital Signs Temp 96.3 F L 08/07/19 07:42 Pulse 88 08/07/19 08:30 Resp 16 08/07/19 07:42 BP 126/71 08/07/19 08:32 Pulse Ox 96 08/07/19 07:42 Weight - Most Recent: 132 lb I&O - Last 24 Hours: Intake & Output 08/06/19 08/07/19 08/07/19 22:59 06:59 14:59 Intake Total 120 240 Output Total 200 Balance 120 40 Lab Results Last 24 Hours: Laboratory Results - last 24 hr 08/03/19 08/07/19 08/07/19 Range/Units 00:30 04:57 04:57 PT 35.6 H (9.5-12.0) sec INR 3.54 H (0.80-1.20) Sodium 139 L (140-148) mmol/L Potassium 5.4 H (3.6-5.2) mmol/L Chloride 106 (100-108) mmol/L Carbon Dioxide 25 (21-32) mmol/L Anion Gap 13.4 (5.0-14.0) mmol/L BUN 48 H (7-18) mg/dL Creatinine 2.7 H (0.6-1.0) mg/dL Est Cr Clr Drug Dosing 15.07 mL/min Estimated GFR (MDRD) 17 L (>60) Glucose 97 (74-106) mg/dL Calcium 9.0 (8.5-10.1) mg/dL Coronavirus (PCR) Not detected (Not Detected) Max Results Last 24 Hours: Microbiology 08/02/19 22:45 Aerobic Blood Culture - Preliminary Blood - Arm, Right NO GROWTH AFTER 4 DAYS Anaerobic Blood Culture - Preliminary NO GROWTH AFTER 4 DAYS 08/02/19 22:35 Aerobic Blood Culture - Preliminary Blood - Arm, Left NO GROWTH AFTER 4 DAYS Anaerobic Blood Culture - Preliminary NO GROWTH AFTER 4 DAYS Med Orders - Current: Current Medications Acetaminophen (Tylenol) 650 mg PO Q4H PRN PRN Reason: Pain Atorvastatin Calcium (Lipitor) 20 mg PO DAILY [facility] Last Admin: 08/07/19 08:33 Dose: 20 mg Cephalexin (Keflex) 500 mg PO Q8H [facility] Last Admin: 08/07/19 06:02 Dose: 500 mg Clopidogrel Bisulfate (Plavix) 75 mg PO DAILY [facility] Last Admin: 08/07/19 08:34 Dose: 75 mg Diltiazem HCl (Cardizem Cd) 180 mg PO DAILY [facility] Last Admin: 08/07/19 08:31 Dose: 180 mg Diphenhydramine HCl (Benadryl) 25 mg PO Q6H PRN PRN Reason: Itching Folic Acid (Folic Acid) 0.5 mg PO DAILY [facility] Last Admin: 08/07/19 08:32 Dose: 0.5 mg Lactobacillus Rhamnosus (Culturelle) 1 cap PO BID [facility] Last Admin: 08/07/19 08:33 Dose: 1 cap Losartan Potassium (Cozaar) 100 mg PO DAILY [facility] Last Admin: 08/07/19 08:32 Dose: 100 mg Melatonin (Melatonin) 9 mg PO BEDTIME [facility] Last Admin: 08/06/19 21:01 Dose: 9 mg Metoprolol Succinate (Toprol Xl) 100 mg PO DAILY [facility] Last Admin: 08/07/19 08:30 Dose: 100 mg Ondansetron HCl (Zofran) 4 mg IVPUSH Q6H PRN PRN Reason: Nausea/Vomiting Oxycodone HCl (Oxycodone) 5 mg PO Q4H PRN PRN Reason: Pain Polyethylene Glycol (Miralax) 17 gm PO BID PRN PRN Reason: Constipation Potassium Chloride (Klor-Con M20) 20 meq PO DAILY [facility] Last Admin: 08/07/19 08:30 Dose: Not Given Senna/Docusate Sodium (Senna Plus) 1 tab PO BID [facility] Last Admin: 08/07/19 08:30 Dose: 1 tab Discontinued Medications Bisacodyl (Dulcolax) 10 mg RECTAL ONETIME ONE Stop: 08/05/19 16:32 Last Admin: 08/05/19 19:03 Dose: Not Given Bumetanide (Bumex) 4 mg IVPUSH ONETIME ONE Stop: 08/03/19 10:01 Last Admin: 08/03/19 10:46 Dose: 4 mg Bumetanide (Bumex) 2 mg IVPUSH ONETIME ONE Stop: 08/04/19 10:01 Last Admin: 08/04/19 09:59 Dose: 2 mg Bumetanide (Bumex) 4 mg PO ONETIME ONE Stop: 08/05/19 09:46 Last Admin: 08/05/19 10:27 Dose: 4 mg Cephalexin (Keflex) 500 mg PO Q8H [facility] Cephalexin (Keflex) 250 mg PO Q8H [facility] Diltiazem HCl (Diltiazem) 15 mg IVPUSH ONETIME ONE Stop: 08/02/19 23:47 Last Admin: 08/02/19 23:59 Dose: 15 mg Diltiazem HCl (Cardizem) 30 mg PO Q6H [facility] Last Admin: 08/05/19 05:36 Dose: 30 mg Diltiazem HCl (Cardizem) 30 mg PO ONETIME ONE Stop: 08/05/19 16:15 Last Admin: 08/05/19 19:07 Dose: 30 mg Diltiazem HCl (Cardizem) Confirm Administered Dose 30 mg .ROUTE .STK-MED ONE Stop: 08/05/19 19:07 Last Admin: 08/05/19 20:08 Dose: Not Given Diltiazem HCl (Cardizem) 30 mg PO ONETIME ONE Stop: 08/05/19 22:34 Last Admin: 08/05/19 22:46 Dose: 30 mg Diphenhydramine HCl (Benadryl) 25 mg IVPUSH Q6H PRN PRN Reason: Itching Fentanyl (Sublimaze) 50 mcg IVPUSH ONETIME ONE Stop: 08/02/19 21:07 Last Admin: 08/02/19 21:27 Dose: 50 mcg Furosemide (Lasix) 40 mg IVPUSH ONETIME ONE Stop: 08/02/19 22:50 Last Admin: 08/02/19 22:54 Dose: 40 mg Hydromorphone HCl (Dilaudid Chief Load Dispatcher 15 Mg In Ns 30 Ml) 15 mg IV ASDIRECTED [facility]; Protocol Sodium Chloride (Normal Saline) 1,000 mls @ 999 mls/hr IV ONETIME ONE Stop: 08/02/19 22:06 Last Admin: 08/02/19 21:27 Dose: 999 mls/hr Ceftriaxone Sodium 1 gm/ (Sodium Chloride) 50 mls @ 100 mls/hr IV ONETIME ONE Stop: 08/02/19 23:03 Last Admin: 08/02/19 22:50 Dose: 100 mls/hr Diltiazem HCl 100 mg/ Sodium (Chloride) 100 mls @ 5 mls/hr IV TITRATE [facility]; Protocol Last Titration: 08/03/19 11:46 Dose: 0 mg/hr, 0 mls/hr Ceftriaxone Sodium 1 gm/ (Sodium Chloride) 50 mls @ 100 mls/hr IV Q24H [facility] Last Admin: 08/04/19 21:43 Dose: 100 mls/hr Lorazepam (Ativan) 1 mg IVPUSH ONETIME ONE Stop: 08/02/19 23:48 Last Admin: 08/02/19 23:59 Dose: 1 mg Metoprolol Tartrate (Lopressor) 5 mg IVPUSH ONETIME ONE Stop: 08/02/19 21:45 Last Admin: 08/02/19 21:48 Dose: 5 mg Metoprolol Tartrate (Lopressor) 25 mg PO Q6H [facility] Last Admin: 08/05/19 04:43 Dose: 25 mg Naloxone HCl (Narcan) 0.04 mg IVPUSH Q3M PRN PRN Reason: Respiratory Depression Ondansetron HCl (Zofran) 4 mg IVPUSH ONETIME ONE Stop: 08/02/19 21:59 Last Admin: 08/02/19 22:02 Dose: 4 mg Potassium Chloride (Klor-Con M20) 40 meq PO ONETIME ONE Stop: 08/04/19 13:01 Last Admin: 08/04/19 13:51 Dose: 40 meq Potassium Chloride (Klor-Con M20) 40 meq PO ONETIME ONE Stop: 08/06/19 09:01 Last Admin: 08/06/19 09:55 Dose: 40 meq Potassium Chloride (Klor-Con M20) 40 meq PO ONETIME ONE Stop: 08/06/19 08:21 Potassium Chloride (Klor-Con M20) 40 meq PO ONETIME ONE Stop: 08/06/19 17:01 Last Admin: 08/06/19 17:37 Dose: 40 meq Warfarin Sodium (Coumadin) 5 mg PO DAILY@1300 [facility] Last Admin: 08/04/19 13:50 Dose: 5 mg Warfarin Sodium (Coumadin) 5 mg PO DAILY@1300 [facility] Last Admin: 08/05/19 13:39 Dose: 5 mg Warfarin Sodium (Coumadin) 2.5 mg PO DAILY@1300 [facility] Last Admin: 08/06/19 12:18 Dose: 2.5 mg - Exam Quality Assessment: DVT Prophylaxis General: Alert, Cooperative, No Acute Distress. No: Oriented Lungs: Clear to Auscultation, Normal Respiratory Effort, Decreased Breath Sounds Cardiovascular: Regular Rate, No Murmurs, Irregular Rhythm GI/Abdominal Exam: Soft, Non-Tender, No Organomegaly, No Distention Extremities: Non-Tender, No Pedal Edema Sepsis Event Note - Evaluation Sepsis Screening Result: No Definite Risk - Focused Exam Vital Signs: Vital Signs Temp Pulse Pulse Resp BP BP Pulse Ox 08/07/19 08:32 126/71 08/07/19 08:30 88 126/71 08/07/19 07:42 96.3 F L 104 H 16 120/75 96 08/07/19 02:52 96.3 F L 99 16 136/85 99 08/06/19 22:29 96.5 F L 97 16 142/57 H 97 Date Exam was Performed: 08/07/19 Time Exam was Performed: 09:34 - Problem List Review Problem List Initiated/Reviewed/Updated: Yes - My Orders Last 24 Hours: My Active Orders 08/06/19 21:00 Melatonin 9 mg PO BEDTIME 08/07/19 09:33 Discontinue Telemetry Monitoring [Cardiac Monitoring Discontinue] [RC] Click to Edit 08/08/19 05:00 INR,PT,PROTHROMBIN TIME [COAG] Timed 08/08/19 05:11 POTASSIUM,K [CHEM] AM - Plan Plan:: ASSESSMENT AND PLAN COMPLICATED URINARY TRACT INFECTION-temps have resolved and she has remained afebrile -Cephalexin 500 mg p.o. every 8 hours for an additional 3 days after discharge CONGESTIVE HEART FAILURE-stable, echocardiogram obtained 2 days ago, formal report pending. Seems to be well compensated at this time with no significant respiratory compromise. ACUTE HYPOXIA-resolved -Supplemental oxygen as needed ATRIAL FIBRILLATION WITH RAPID VENTRICULAR RESPONSE-rate now well controlled on current medical therapy -Continue anticoagulation -Metoprolol XL 100 mg p.o. daily -Diltiazem CD 180 mg daily CHRONIC KIDNEY DISEASE STAGE IV-renal function remains elevated but stable -Closely monitor urine output and renal function with diuresis ADNEXAL LESION-simple cyst noted on ultrasound -No further evaluation warranted MAINTENANCE ISSUES -DVT prophylaxis; stable with current anticoagulation -GI prophylaxis; not indicated -Mason catheter; not indicated -Nutrition; 2 g sodium diet -Nicotine dependence; not required CODE STATUS-FULL CODE ADMISSION STATUS-patient will be admitted to inpatient status, expect at least a 2 night hospital stay for evaluation and management of problems as outlined above. At the time of this admission I do not reasonably expected evaluation and management of this problem will require more than a 96 hour hospital stay. DISPOSITION-anticipate discharge to home after the hospital stay. PRIMARY CARE PROVIDER-
--- NOTE | 2019-08-07 09:48 | PCM.DCSUM1 ---
Discharge Summary - Hospital Course Brief History: Ms. An is a 79-year-old woman who was admitted through the emergency department with shortness of breath as well as right-sided flank and abdominal pain secondary to congestive heart failure, atrial fibrillation with rapid ventricular response, and complicated urinary tract infection with pyelonephritis. - Discharge Data Discharge Date: 08/08/19 Discharge Disposition: Home, Self-Care 01 Condition: Fair - Referral to Home Health Primary Care Physician: PCP None - Discharge Diagnosis/Problem(s) (1) Atrial fibrillation with RVR SNOMED Code(s): 956821356713575 ICD Code: I48.91 - UNSPECIFIED ATRIAL FIBRILLATION Status: Acute Current Visit: Yes (2) Congestive heart failure ICD Code: I50.9 - HEART FAILURE, UNSPECIFIED Status: Acute Current Visit: Yes Qualifiers: Heart failure type: unspecified Heart failure chronicity: acute Qualified Code(s): I50.9 - Heart failure, unspecified (3) Pyelonephritis SNOMED Code(s): 36245712 ICD Code: N12 - TUBULO-INTERSTITIAL NEPHRITIS, NOT SPCF ACUTE OR CHRONIC Status: Acute Current Visit: Yes (4) Essential hypertension SNOMED Code(s): 21619649 ICD Code: I10 - ESSENTIAL (PRIMARY) HYPERTENSION Status: Chronic Current Visit: No (5) Stage 4 chronic kidney disease SNOMED Code(s): 131331657 ICD Code: N18.4 - CHRONIC KIDNEY DISEASE, STAGE 4 (SEVERE) Status: Chronic Current Visit: No - Patient Summary/Data Hospital Course: Ms. An is a 79-year-old woman who was admitted through the emergency department by Drs. Oh. She has a known history of chronic kidney disease stage IV and had been feeling extremely weak and tired. She also did experience some flank pain and was noted to have evidence of urinary tract infection on urinalysis. She was in atrial fibrillation with rapid ventricular response and chest x-ray suggests pulmonary edema. She has been hypoxic since admission requiring 4 L of supplemental oxygen to maintain adequate saturations. Cultures have been obtained and she was started on IV ceftriaxone for antibiotic therapy, pending culture results. She also has been on IV diltiazem for rate control of her atrial fibrillation. The day after admission she was given Bumex 4 mg IV and had a good diuresis with improvement in shortness of breath and oxygenation. She did receive further diuretic therapy during her hospital stay. She became afebrile and flank/abdominal pain resolved with antibiotic therapy. Urine culture did grow out pansensitive E. coli, blood cultures remained negative. Creatinine remained elevated but stable during hospitalization, with renal function at baseline chronic kidney disease stage IV. She was transitioned off of the IV diltiazem to oral metoprolol and oral diltiazem with good control of her heart rate by the time of discharge. Clonidine patch and propranolol were discontinued. She will remain on diltiazem and metoprolol at the time of discharge and the other antihypertensive medications will be permanently discontinued. She remained intermittently confused during hospitalization and weak. Family felt that they were no longer able to provide care for her at home safely and [facility] and Occupational Therapy. She will receive an additional 3 days of oral antibiotic therapy with cephalexin to complete a course of 7 days. Activity will be as tolerated and she will resume her usual low-sodium diet. INR was slightly elevated prior to discharge and will be monitored on an outpatient basis. INR and BMP will be obtained on August 08. Follow-up with primary care at the [facility] will be as needed. Echocardiogram was obtained prior to discharge, formal report is pending at the time of this dictation. - Patient Instructions Diet: Low Sodium Activity: As Tolerated Other/Special Instructions: Daily physical therapy and occupational therapy while at the [facility]. Follow-up labs on August 08; BMP and INR - Discharge Plan *PRESCRIPTION DRUG MONITORING PROGRAM REVIEWED*: Not Applicable *COPY OF PRESCRIPTION DRUG MONITORING REPORT IN PATIENT OTIS: Not Applicable Prescriptions/Med Rec: cephALEXin [Cephalexin] 500 mg PO Q8H #9 capsule Diltiazem HCl [Diltiazem 24Hr Cd] 180 mg PO DAILY #30 cap.er.24h Lactobacillus Rhamnosus GG [Culturelle] 1 cap PO BID #60 cap Metoprolol Succinate 100 mg PO DAILY #30 tab.er.24h Warfarin [Coumadin] 2.5 mg PO DAILY #60 tab Home Medications: Home Meds Folic Acid 400 mcg PO DAILY 03/31/13 [History] Clopidogrel Bisulfate [Clopidogrel] 75 mg PO DAILY 03/12/19 [History] Losartan [Cozaar] 100 mg PO DAILY 03/12/19 [History] Potassium Chloride 20 meq PO DAILY 03/12/19 [History] calcitrioL [Rocaltrol] 0.25 mcg PO ASDIRECTED 03/12/19 [History] atorvaSTATin Calcium [Atorvastatin Calcium] 20 mg PO DAILY 08/02/19 [History] Diltiazem HCl [Diltiazem 24Hr Cd] 180 mg PO DAILY #30 cap.er.24h 08/07/19 [Rx] Lactobacillus Rhamnosus GG [Culturelle] 1 cap PO BID #60 cap 08/07/19 [Rx] Metoprolol Succinate 100 mg PO DAILY #30 tab.er.24h 08/07/19 [Rx] Warfarin [Coumadin] 2.5 mg PO DAILY #60 tab 08/07/19 [Rx] cephALEXin [Cephalexin] 500 mg PO Q8H #9 capsule 08/07/19 [Rx] Referrals: PCP,None [Primary Care Provider] - - Discharge Summary/Plan Comment DC Time >30 min.: No - Patient Data Vitals - Most Recent: Last Vital Signs Temp 96.3 F L 08/07/19 07:42 Pulse 88 08/07/19 08:30 Resp 16 08/07/19 07:42 BP 126/71 08/07/19 08:32 Pulse Ox 96 08/07/19 07:42 Weight - Most Recent: 132 lb I&O - Last 24 hours: Intake & Output 08/06/19 08/07/19 08/07/19 22:59 06:59 14:59 Intake Total 120 240 Output Total 200 Balance 120 40 Lab Results - Last 24 hrs: Laboratory Results - last 24 hr 08/03/19 08/07/19 08/07/19 Range/Units 00:30 04:57 04:57 PT 35.6 H (9.5-12.0) sec INR 3.54 H (0.80-1.20) Sodium 139 L (140-148) mmol/L Potassium 5.4 H (3.6-5.2) mmol/L Chloride 106 (100-108) mmol/L Carbon Dioxide 25 (21-32) mmol/L Anion Gap 13.4 (5.0-14.0) mmol/L BUN 48 H (7-18) mg/dL Creatinine 2.7 H (0.6-1.0) mg/dL Est Cr Clr Drug Dosing 15.07 mL/min Estimated GFR (MDRD) 17 L (>60) Glucose 97 (74-106) mg/dL Calcium 9.0 (8.5-10.1) mg/dL Coronavirus (PCR) Not detected (Not Detected) [facility]ANTEL Results - Last 24 hrs: Microbiology 08/02/19 22:45 Aerobic Blood Culture - Preliminary Blood - Arm, Right NO GROWTH AFTER 4 DAYS Anaerobic Blood Culture - Preliminary NO GROWTH AFTER 4 DAYS 08/02/19 22:35 Aerobic Blood Culture - Preliminary Blood - Arm, Left NO GROWTH AFTER 4 DAYS Anaerobic Blood Culture - Preliminary NO GROWTH AFTER 4 DAYS Med Orders - Current: Current Medications Acetaminophen (Tylenol) 650 mg PO Q4H PRN PRN Reason: Pain Atorvastatin Calcium (Lipitor) 20 mg PO DAILY [facility] Last Admin: 08/07/19 08:33 Dose: 20 mg Cephalexin (Keflex) 500 mg PO Q8H [facility] Last Admin: 08/07/19 06:02 Dose: 500 mg Clopidogrel Bisulfate (Plavix) 75 mg PO DAILY [facility] Last Admin: 08/07/19 08:34 Dose: 75 mg Diltiazem HCl (Cardizem Cd) 180 mg PO DAILY [facility] Last Admin: 08/07/19 08:31 Dose: 180 mg Diphenhydramine HCl (Benadryl) 25 mg PO Q6H PRN PRN Reason: Itching Folic Acid (Folic Acid) 0.5 mg PO DAILY [facility] Last Admin: 08/07/19 08:32 Dose: 0.5 mg Lactobacillus Rhamnosus (Culturelle) 1 cap PO BID [facility] Last Admin: 08/07/19 08:33 Dose: 1 cap Losartan Potassium (Cozaar) 100 mg PO DAILY [facility] Last Admin: 08/07/19 08:32 Dose: 100 mg Melatonin (Melatonin) 9 mg PO BEDTIME [facility] Last Admin: 08/06/19 21:01 Dose: 9 mg Metoprolol Succinate (Toprol Xl) 100 mg PO DAILY [facility] Last Admin: 08/07/19 08:30 Dose: 100 mg Ondansetron HCl (Zofran) 4 mg IVPUSH Q6H PRN PRN Reason: Nausea/Vomiting Oxycodone HCl (Oxycodone) 5 mg PO Q4H PRN PRN Reason: Pain Polyethylene Glycol (Miralax) 17 gm PO BID PRN PRN Reason: Constipation Potassium Chloride (Klor-Con M20) 20 meq PO DAILY [facility] Last Admin: 08/07/19 08:30 Dose: Not Given Senna/Docusate Sodium (Senna Plus) 1 tab PO BID [facility] Last Admin: 08/07/19 08:30 Dose: 1 tab Discontinued Medications Bisacodyl (Dulcolax) 10 mg RECTAL ONETIME ONE Stop: 08/05/19 16:32 Last Admin: 08/05/19 19:03 Dose: Not Given Bumetanide (Bumex) 4 mg IVPUSH ONETIME ONE Stop: 08/03/19 10:01 Last Admin: 08/03/19 10:46 Dose: 4 mg Bumetanide (Bumex) 2 mg IVPUSH ONETIME ONE Stop: 08/04/19 10:01 Last Admin: 08/04/19 09:59 Dose: 2 mg Bumetanide (Bumex) 4 mg PO ONETIME ONE Stop: 08/05/19 09:46 Last Admin: 08/05/19 10:27 Dose: 4 mg Cephalexin (Keflex) 500 mg PO Q8H [facility] Cephalexin (Keflex) 250 mg PO Q8H [facility] Diltiazem HCl (Diltiazem) 15 mg IVPUSH ONETIME ONE Stop: 08/02/19 23:47 Last Admin: 08/02/19 23:59 Dose: 15 mg Diltiazem HCl (Cardizem) 30 mg PO Q6H [facility] Last Admin: 08/05/19 05:36 Dose: 30 mg Diltiazem HCl (Cardizem) 30 mg PO ONETIME ONE Stop: 08/05/19 16:15 Last Admin: 08/05/19 19:07 Dose: 30 mg Diltiazem HCl (Cardizem) Confirm Administered Dose 30 mg .ROUTE .STK-MED ONE Stop: 08/05/19 19:07 Last Admin: 08/05/19 20:08 Dose: Not Given Diltiazem HCl (Cardizem) 30 mg PO ONETIME ONE Stop: 08/05/19 22:34 Last Admin: 08/05/19 22:46 Dose: 30 mg Diphenhydramine HCl (Benadryl) 25 mg IVPUSH Q6H PRN PRN Reason: Itching Fentanyl (Sublimaze) 50 mcg IVPUSH ONETIME ONE Stop: 08/02/19 21:07 Last Admin: 08/02/19 21:27 Dose: 50 mcg Furosemide (Lasix) 40 mg IVPUSH ONETIME ONE Stop: 08/02/19 22:50 Last Admin: 08/02/19 22:54 Dose: 40 mg Hydromorphone HCl (Dilaudid Processing Spec 15 Mg In Ns 30 Ml) 15 mg IV ASDIRECTED [facility]; Protocol Sodium Chloride (Normal Saline) 1,000 mls @ 999 mls/hr IV ONETIME ONE Stop: 08/02/19 22:06 Last Admin: 08/02/19 21:27 Dose: 999 mls/hr Ceftriaxone Sodium 1 gm/ (Sodium Chloride) 50 mls @ 100 mls/hr IV ONETIME ONE Stop: 08/02/19 23:03 Last Admin: 08/02/19 22:50 Dose: 100 mls/hr Diltiazem HCl 100 mg/ Sodium (Chloride) 100 mls @ 5 mls/hr IV TITRATE [facility]; Protocol Last Titration: 08/03/19 11:46 Dose: 0 mg/hr, 0 mls/hr Ceftriaxone Sodium 1 gm/ (Sodium Chloride) 50 mls @ 100 mls/hr IV Q24H [facility] Last Admin: 08/04/19 21:43 Dose: 100 mls/hr Lorazepam (Ativan) 1 mg IVPUSH ONETIME ONE Stop: 08/02/19 23:48 Last Admin: 08/02/19 23:59 Dose: 1 mg Metoprolol Tartrate (Lopressor) 5 mg IVPUSH ONETIME ONE Stop: 08/02/19 21:45 Last Admin: 08/02/19 21:48 Dose: 5 mg Metoprolol Tartrate (Lopressor) 25 mg PO Q6H [facility] Last Admin: 08/05/19 04:43 Dose: 25 mg Naloxone HCl (Narcan) 0.04 mg IVPUSH Q3M PRN PRN Reason: Respiratory Depression Ondansetron HCl (Zofran) 4 mg IVPUSH ONETIME ONE Stop: 08/02/19 21:59 Last Admin: 08/02/19 22:02 Dose: 4 mg Potassium Chloride (Klor-Con M20) 40 meq PO ONETIME ONE Stop: 08/04/19 13:01 Last Admin: 08/04/19 13:51 Dose: 40 meq Potassium Chloride (Klor-Con M20) 40 meq PO ONETIME ONE Stop: 08/06/19 09:01 Last Admin: 08/06/19 09:55 Dose: 40 meq Potassium Chloride (Klor-Con M20) 40 meq PO ONETIME ONE Stop: 08/06/19 08:21 Potassium Chloride (Klor-Con M20) 40 meq PO ONETIME ONE Stop: 08/06/19 17:01 Last Admin: 08/06/19 17:37 Dose: 40 meq Warfarin Sodium (Coumadin) 5 mg PO DAILY@1300 [facility] Last Admin: 08/04/19 13:50 Dose: 5 mg Warfarin Sodium (Coumadin) 5 mg PO DAILY@1300 [facility] Last Admin: 08/05/19 13:39 Dose: 5 mg Warfarin Sodium (Coumadin) 2.5 mg PO DAILY@1300 [facility] Last Admin: 08/06/19 12:18 Dose: 2.5 mg - Exam Quality Assessment: Reports: DVT Prophylaxis General: Reports: Alert, Cooperative, No Acute Distress. Denies: Oriented Lungs: Reports: Clear to Auscultation, Normal Respiratory Effort Cardiovascular: Reports: Regular Rate, No Murmurs, Irregular Rhythm GI/Abdominal Exam: Soft, Non-Tender, No Organomegaly, No Distention Extremities: Non-Tender, No Pedal Edema
[2019-08-07] MEDS: Melatonin 3 MG Tab PO SCH (21:30)
[2019-08-08] MEDS: Cephalexin 250 MG Cap PO SCH (06:13)
[2019-08-08] MEDS: Diltiazem 180 MG Cap.CD PO SCH (08:19)
[2019-08-08] MEDS: Losartan 50 MG Tab PO SCH (08:20)
[2019-08-08] MEDS: Folic Acid 1 MG Tab PO SCH (08:21)
[2019-08-08] MEDS: Lactobacillus Rhamnosus GG (Probiotic) Cap PO SCH (08:21)
[2019-08-08] MEDS: Potassium Chloride 20 MEQ Tab.ER PO SCH (08:21)
[2019-08-08] MEDS: atorvaSTATin 20 MG Tab PO SCH (08:22)
[2019-08-08] MEDS: Clopidogrel 75 MG Tab PO SCH (08:22)
[2019-08-08] MEDS: Metoprolol Succinate 50 MG Tab.ER PO SCH (08:23)
[2019-08-08 10:44] VITALS: BP 110/60; PULSE 112
== END 2019-08-08 11:01 | disposition home or self-care (01) | DRG 291 ==
LOC: JP.ED 20:19 → JP.ICU 23:56 → JP.MS 08-05 16:48
PROVIDERS: ADMIT Family Medicine; ATTEND Hospitalist
DX: I13.0 Hypertensive heart and chronic kidney disease with heart failure and stage 1 through stage 4 chronic kidney disease, or unspecified chronic kidney disease (principal); I48.91 Unspecified atrial fibrillation; I50.43 Acute on chronic combined systolic (congestive) and diastolic (congestive) heart failure; N39.0 Urinary tract infection, site not specified; N18.4 Chronic kidney disease, stage 4 (severe); Q60.5 Renal hypoplasia, unspecified; I48.20 Chronic atrial fibrillation, unspecified; N12 Tubulo-interstitial nephritis, not specified as acute or chronic; H54.7 Unspecified visual loss; H91.90 Unspecified hearing loss, unspecified ear; E78.00 Pure hypercholesterolemia, unspecified; R32 Unspecified urinary incontinence; Z20.828 Contact with and (suspected) exposure to other viral communicable diseases; B96.20 Unspecified Escherichia coli [E. coli] as the cause of diseases classified elsewhere; E78.5 Hyperlipidemia, unspecified; N85.8 Other specified noninflammatory disorders of uterus; I73.9 Peripheral vascular disease, unspecified; Z79.01 Long term (current) use of anticoagulants; Z79.899 Other long term (current) drug therapy; Z79.02 Long term (current) use of antithrombotics/antiplatelets; Z88.6 Allergy status to analgesic agent; Z91.048 Other nonmedicinal substance allergy status; Z91.040 Latex allergy status; Z88.1 Allergy status to other antibiotic agents; Z88.8 Allergy status to other drugs, medicaments and biological substances; Z88.5 Allergy status to narcotic agent; Z86.73 Personal history of transient ischemic attack (TIA), and cerebral infarction without residual deficits; Z90.49 Acquired absence of other specified parts of digestive tract
CPT/HCPCS: 36415; 71045 ×2; 74176; 80053; 81001; 82150; 83605; 83690; 84484; 85025; 85610; 87040 ×2; 87086; 87088; 87186; 96361; 96365; 96375; 99284; 99285; J0696; J1940; J2405; J3010; J3490 ×2; J7030; J7050 ×2; 76856; 76856-26; 80048; 84132; 85027; 93306; A9270-GY; J2060; U0002